=== PATIENT | male | born 1960 | race American Indian/Alaskan Native ===

== ENCOUNTER 2021-08-17 20:03 | Inpatient (IN) | payer SELFPAY ==
--- NOTE | 2021-08-17 22:08 | XRay Report ---
CHEST 1 VIEW 08/17/2021 9:00 PM INDICATION / CLINICAL INFORMATION: GI Bleed. COMPARISON: None available. FINDINGS: SUPPORT DEVICES: None. HEART / MEDIASTINUM: No significant abnormality. LUNGS / PLEURA: Increased airspace opacity within the right lower lobe. No pneumothorax. ADDITIONAL FINDINGS: No significant additional findings. IMPRESSION: 1. Increased airspace opacity in the right lower lobe which may represent [facility] process [facility]. Signer Name: Matty Toure DO Signed: 08/17/2021 10:04 PM Workstation Name: [id number]
[2021-08-17 22:58] LABS: Basophils % (Auto) 0.1 % (0.0-1.8); Hematocrit 44.8 % (35.5-45.6); Hemoglobin 14.3 gm/dl (11.8-15.2); Lymphocytes # (Auto) 0.7 K/mm3 (1.2-5.4); Lymphocytes % (Auto) 7.8 % (13.4-35.0); Mean Corpuscular HGB Conc 32 % (32-34); Mean Corpuscular Volume 71 fl (84-94); Monocytes # (Auto) 0.8 K/mm3 (0.0-0.8); Monocytes % (Auto) 9.6 % (0.0-7.3); Platelet Count 204 K/mm3 (140-440); Red Blood Count 6.33 M/mm3 (3.65-5.03); Red Cell Distribution Width 15.5 % (13.2-15.2)
[2021-08-17] MEDS ORDERED: PANTOPRAZOLE 40 MG INJ IV ONE (23:00)
[2021-08-17] MEDS ORDERED: ONDANSETRON 4 MG/2 ML INJ IV ONE (23:00)
[2021-08-17 23:04] LABS: INR 0.97 (0.87-1.13)
[2021-08-17] MEDS ORDERED: SODIUM CHLORIDE 0.9% 1000 ML 1,000 ML IV ONE (23:15)
[2021-08-17 23:17] LABS: Calcium 9.8 mg/dL (8.4-10.2)
--- NOTE | 2021-08-18 00:45 | Cat Scan Report ---
CT ABDOMEN AND PELVIS WITHOUT CONTRAST INDICATION / CLINICAL INFORMATION: pain. TECHNIQUE: Axial CT images were obtained through the abdomen and pelvis without IV contrast. All CT scans at this location are performed using CT dose reduction for ALARA by means of automated exposure control. COMPARISON: None available. FINDINGS: LOWER CHEST: Patchy infiltrate with nodular component at the right mid and lower zone. LIVER: 1.8 cm cyst at the hepatic dome anteriorly. Smaller cysts at the lateral segment of the left h epatic lobe. GALLBLADDER: No significant abnormality. BILE DUCTS: No significant abnormality. PANCREAS: No significant abnormality. SPLEEN: No significant abnormality. ADRENALS: No significant abnormality. RIGHT KIDNEY / URETER: Mild distention of the collecting system and ureter. LEFT KIDNEY / URETER: Mild distention of the collecting system and ureter. STOMACH / SMALL BOWEL: Moderate distention of the stomach with fluid. Small/moderate hiatal hernia is fluid-filled. COLON: No significant abnormality. APPENDIX: No significant abnormality. PERITONEUM: No free fluid. No free air. No fluid collection. LYMPH NODES: No significant adenopathy. VASCULAR STRUCTURES: No significant abnormality. URINARY BLADDER: Prominently distended with fluid. No wall thickening. REPRODUCTIVE ORGANS: Mild prostate enlargement. ADDITIONAL FINDINGS: None. SKELETAL SYSTEM: No significant abnormality. IMPRESSION: 1. Right-sided pneumonia. 2. Prominent bladder distention with resultant distention of the renal collecting systems and ureters . 3. Gastric distention with associated fluid filled hiatal hernia. Signer Name: Macho Gomez MD Signed: 08/18/2021 12:40 AM Workstation Name: [id number]
[2021-08-18] MEDS ORDERED: cefTRIAXone/NS 1 GM/50 ML 1 GM/50 ML BAG IV ONE (00:46)
--- NOTE | 2021-08-18 03:28 | Emergency Department Report ---
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 on asprin and plavix , no diarrhea no melena , HR noted in 120-130 -: Gradual, hour(s) Associated Symptoms: denies: denies other symptoms, confusion, chest pain, cough, diaphoresis, fever/chills, headaches, loss of appetite - Related Data Allergies Allergy/AdvReac Type Severity Reaction Status Date / Time No Known Allergies Allergy Verified 08/17/21 22:29 ED Review of Systems ROS: Stated complaint: VOMITING BLOOD Other details as noted in HPI Comment: Unobtainable due to pts medical conditions ED Past Medical Hx - Past Medical History Hx Hypertension: Yes Hx CVA: Yes ED Physical Exam - General Limitations: No Limitations General appearance: other (non verbal ) - Head Head exam: Present: atraumatic, normocephalic - Eye Eye exam: Present: normal appearance - ENT ENT exam: Present: mucous membranes moist, other (dried blood ) - Neck Neck exam: Present: normal inspection - Respiratory Respiratory exam: Present: normal lung sounds bilaterally. Absent: respiratory distress - Cardiovascular Cardiovascular Exam: Present: regular rate, normal rhythm. Absent: systolic mu rmur, diastolic murmur, rubs, gallop - GI/Abdominal GI/Abdominal exam: Present: soft, normal bowel sounds - Rectal Rectal exam: Present: deferred, heme (+) stool - Extremities Exam Extremities exam: Present: normal inspection - Back Exam Back exam: Present: normal inspection - Neurological Exam Neurological exam: Present: oriented X3 - Skin Skin exam: Present: warm, dry, intact, normal color. Absent: rash ED Course Vital Signs 08/17/21 21:35 Temperature 97.8 F Pulse Rate 130 H Respiratory 16 Rate Blood Pressure 130/90 [Right] O2 Sat by Pulse 96 Oximetry ED Medical Decision Making - Lab Data Result diagrams: 08/17/21 22:40 08/17/21 22:40 - Radiology Data Radiology results: report reviewed, image reviewed - Medical Decision Making work up shwoed stable H.H , heme positive stools, tachycardia noted , x ray shwoed pneumonia, CT negative , started on fluids and PPI Critical care attestation.: If time is entered above; I have spent that time in minutes in the direct care of this critically ill patient, excluding procedure time. ED Disposition Clinical Impression: GI bleed, Hematemesis, Pneumonia Disposition: ADMITTED INPATIENT Is pt being admited?: Yes Does the pt Need Aspirin: No Condition: Stable Instructions: Bacterial Pneumonia (ED) Referrals: PRIMARY CARE, [Primary Care Provider] - 3-5 Days
[2021-08-18] MEDS ORDERED: ONDANSETRON 4 MG/2 ML INJ IV PRN (05:25)
[2021-08-18] MEDS ORDERED: MORPHINE 4 MG/1 ML INJ IV PRN (05:25)
[2021-08-18] MEDS ORDERED: MORPHINE 2 MG/1 ML INJ IV PRN (05:25)
[2021-08-18] MEDS ORDERED: ALBUTEROL 2.5 MG/3 ML NEBU IH PRN (05:25)
[2021-08-18] MEDS ORDERED: ACETAMINOPHEN 325 MG TAB PO PRN (05:25)
--- NOTE | 2021-08-18 05:33 | History and Physical Report ---
History of Present Illness Date of examination: 08/18/21 Date of admission: 08/18/21 Chief complaint: Vomiting blood History of present illness: 60 years old male with history of hypertension and CVA with left side weakness and non verbal was brought to the emergency room because of vomiting blood. Patient is on asprin and plavix. Patient denied no diarrhea no melena , HR noted in 120-130 . Patient denied any shortness of breath or any other complain. In the emergency room patient is found to have hemoglobin of 14.3 and hematocrit 44.8, patient BUN is 35 creatinine is 3.0, patient Hemoccult is positive.'s were going to admit the patient reconsult GI for evaluation we also put the patient on Protonix drip. Past History Past Medical History: hypertension, stroke Past Surgical History: No surgical history Social history: no significant social history Family history: hypertension Medications and Allergies Allergies Allergy/AdvReac Type Severity Reaction Status Date / Time No Known Allergies Allergy Verified 08/17/21 22:29 Review of Systems All systems: negative Gastrointestinal: nausea, vomiting, hematemesis, other (GI bleeding) Exam - Constitutional Vitals: Temp Pulse Resp BP Pulse Ox 97.8 F 130 H 16 130/90 96 08/17/21 21:35 08/17/21 21:35 08/17/21 21:35 08/17/21 21:35 08/17/21 21:35 General appearance: Present: no acute distress, well-nourished - EENT Eyes: Present: PERRL ENT: hearing intact, clear oral mucosa - Neck Neck: Present: supple, normal ROM - Respiratory Respiratory effort: normal Respiratory: bilateral: CTA - Cardiovascular Heart Sounds: Present: S1 & S2. Absent: rub, click - Extremities Extremities: pulses symmetrical, No edema Peripheral Pulses: within normal limits - Abdominal General gastrointestinal: Present: soft, non-tender, non-distended, normal bowel sounds Male genitourinary: Present: normal - Integumentary Integumentary: Present: clear, warm, dry - Musculoskeletal Musculoskeletal: gait normal, strength equal bilaterally - Psychiatric Psychiatric: appropriate mood/affect, intact judgment & insight - Neurologic Neurologic: CNII-XII intact, moves all extremities Results - Labs CBC & Chem 7: 08/17/21 22:40 08/17/21 22:40 Labs: Laboratory Last Values WBC 8.6 K/mm3 (4.5-11.0) 08/17/21 22:40 RBC 6.33 M/mm3 (3.65-5.03) H 08/17/21 22:40 Hgb 14.3 gm/dl (11.8-15.2) 08/17/21 22:40 Hct 44.8 % (35.5-45.6) 08/17/21 22:40 MCV 71 fl (84-94) L 08/17/21 22:40 MCH 23 pg (28-32) L 08/17/21 22:40 MCHC 32 % (32-34) 08/17/21 22:40 RDW 15.5 % (13.2-15.2) H 08/17/21 22:40 Plt Count 204 K/mm3 (140-440) 08/17/21 22:40 Lymph % (Auto) 7.8 % (13.4-35.0) L 08/17/21 22:40 [place] % (Auto) 9.6 % (0.0-7.3) H 08/17/21 22:40 Eos % (Auto) 0.0 % (0.0-4.3) 08/17/21 22:40 Baso % (Auto) 0.1 % (0.0-1.8) 08/17/21 22:40 Lymph # (Auto) 0.7 K/mm3 (1.2-5.4) L 08/17/21 22:40 [place] # (Auto) 0.8 K/mm3 (0.0-0.8) 08/17/21 22:40 Eos # (Auto) 0.0 K/mm3 (0.0-0.4) 08/17/21 22:40 Baso # (Auto) 0.0 K/mm3 (0.0-0.1) 08/17/21 22:40 Seg Neutrophils % 82.5 % (40.0-70.0) H 08/17/21 22:40 Seg Neutrophils # 7.1 K/mm3 (1.8-7.7) 08/17/21 22:40 PT 13.9 Sec. (12.2-14.9) 08/17/21 22:40 INR 0.97 (0.87-1.13) 08/17/21 22:40 Sodium 140 mmol/L (137-145) 08/17/21 22:40 Potassium 4.8 mmol/L (3.6-5.0) 08/17/21 22:40 Chloride 101.7 mmol/L (98-107) 08/17/21 22:40 Carbon Dioxide 22 mmol/L (22-30) 08/17/21 22:40 Anion Gap 21 mmol/L 08/17/21 22:40 BUN 35 mg/dL (9-20) H 08/17/21 22:40 Creatinine 3.0 mg/dL (0.8-1.3) H D 08/17/21 22:40 Estimated GFR 26 ml/min 08/17/21 22:40 BUN/Creatinine Ratio 12 % 08/17/21 22:40 Glucose 146 mg/dL (75-100) H 08/17/21 22:40 Calcium 9.8 mg/dL (8.4-10.2) 08/17/21 22:40 Total Bilirubin 0.60 mg/dL (0.1-1.2) 08/17/21 22:40 AST 21 units/L (5-40) 08/17/21 22:40 ALT 13 units/L (7-56) 08/17/21 22:40 Alkaline Phosphatase 86 units/L (35-129) 08/17/21 22:40 Total Protein 7.2 g/dL (6.3-8.2) 08/17/21 22:40 Albumin 4.0 g/dL (3.9-5) 08/17/21 22:40 Albumin/Globulin Ratio 1.3 % 08/17/21 22:40 Lipase 14 units/L (13-60) 08/17/21 22:40 Blood Type B POSITIVE 08/17/21 22:45 Antibody Screen Negative 08/17/21 22:45 Microbiology: Microbiology 08/18/21 01:04 Peripheral/Venous Blood Culture - Preliminary Culture in Progress 08/18/21 01:36 Peripheral/Venous Blood Culture - Preliminary Culture in Progress - Imaging and Cardiology CT scan - chest: report reviewed Assessment and Plan VTE prophylaxis?: Mechanical Plan of care discussed with patient/family: Yes - Patient Problems (1) Hematemesis Current Visit: Yes Status: Acute Plan to address problem: Admit the patient to the medical telemetry. NPO. D5 half-normal saline at the rate of 100 cc/h. Protonix drip 8 mg/h. We will do the serial H&H. Will consult GI for evaluation. Recheck CBC in the morning (2) GI bleed Current Visit: Yes Status: Acute Plan to address problem: NPO. D5 half-normal saline at the rate of 100 cc/h. Protonix drip 8 mg/h. We will do the serial H&H. Will consult GI for evaluation. Recheck CBC in the m orning (3) Hypertension Current Visit: Yes Status: Acute Plan to address problem: Hydralazine 10 mg IV every 6 hours as needed. We will continue the home medication (4) CVA (cerebral vascular accident) Current Visit: Yes Status: Acute Plan to address problem: Stable. We will continue the home medication outpatient follow-up with neurology (5) Pneumonia Current Visit: Yes Status: Acute Plan to address problem: Oxygen per nasal cannula 3 L/min. DuoNeb by nebulizer every 4 hours as needed. Rocephin 2 g IV daily and Zithromax 500 mg p.o. daily. We will do the blood culture sputum culture. Recheck CBC in the morning (6) ROYA (acute kidney injury) Current Visit: Yes Status: Acute Plan to address problem: Avoid nephrotoxic drug. Renally dose medication. D5 half-normal saline at the rate of 100 cc/h. Consult nephrology evaluation. Recheck BMP in the (7) DVT prophylaxis Current Visit: Yes Status: Acute Plan to address problem: SCD for DVT prophylaxis because of GI bleeding. Protonix drip for GI prophylax is. Patient is a full code
[2021-08-18] MEDS ORDERED: IPRATROPIUM/ALBUTEROL SULFATE 3 ML AMPUL.NEB IH SCH (08:00)
--- NOTE | 2021-08-18 08:12 | Progress Note ---
Assessment and Plan Assessment and plan: 60 years old male with history of hypertension and CVA with left side weakness and non verbal was brought to the emergency room because of vomiting blood. Patient is on asprin and plavix. Patient denied no diarrhea no melena , HR noted in 120-130 . Patient denied any shortness of breath or any other complain. In the emergency room patient is found to have hemoglobin of 14.3 and hematocrit 44.8, patient BUN is 35 creatinine is 3.0, patient Hemoccult is positive.'s were going to admit the patient ,consult GI for evaluation we also put the patient on Protonix drip. We also consult nephrology for evaluation. Recheck BMP in the morning - Patient Problems (1) Hematemesis Current Visit: Yes Status: Acute Plan to address problem: Admit the patient to the medical telemetry. NPO. D5 half-normal saline at the rate of 100 cc/h. Protonix drip 8 mg/h. We will do the serial H&H. Will co nsult GI for evaluation. Recheck CBC in the morning (2) GI bleed Current Visit: Yes Status: Acute Plan to address problem: NPO. D5 half-normal saline at the rate of 100 cc/h. Protonix drip 8 mg/h. We will do the serial H&H. Will consult GI for evaluation. Recheck CBC in the morning (3) Hypertension Current Visit: Yes Status: Acute Plan to address problem: Hydralazine 10 mg IV every 6 hours as needed. We will continue the home medication (4) CVA (cerebral vascular accident) Current Visit: Yes Status: Acute Plan to address problem: Stable. We will continue the home medication outpatient follow-up with neurology (5) Pneumonia Current Visit: Yes Status: Acute Plan to address problem: Oxygen per nasal cannula 3 L/min. DuoNeb by nebulizer every 4 hours as needed. Rocephin 2 g IV daily and Zithromax 500 mg p.o. daily. We will do the blood culture sputum culture. Recheck CBC in the morning (6) ROYA (acute kidney injury) Current Visit: Yes Status: Acute Plan to address problem: Avoid nephrotoxic drug. Renally dose medication. D5 half-normal saline at the rate of 100 cc/h. Consult nephrology evaluation. Recheck BMP in the (7) DVT prophylaxis Current Visit: Yes Status: Acute Plan to address problem: SCD for DVT prophylaxis because of GI bleeding. Protonix drip for GI prophylaxis. Patient is a full code History Interval history: Patient is seen and examined. Lab and data reviewed. Patient feels little better. No more vomiting blood. Hemoglobin is 14.3 and hematocrit 44.8. Patient is on Protonix drip and waiting for GI evaluation Hospitalist Physical - Constitutional Vitals: Temp Pulse Resp BP Pulse Ox 97.8 F 124 H 41 H 146/102 96 08/17/21 21:35 08/18/21 07:31 08/18/21 07:31 08/18/21 07:31 08/18/21 06:31 General appearance: Present: no acute distress, well-nourished - EENT Eyes: Present: PERRL, EOM intact ENT: hearing intact, clear oral mucosa, dentition normal - Neck Neck: Present: supple, normal ROM - Respiratory Respiratory effort: normal Respiratory: bilateral: CTA - Cardiovascular Rhythm: regular Heart Sounds: Present: S1 & S2 - Extremities Extremities: no ischemia, No edema, normal color Peripheral Pulses: within normal limits - Abdominal General gastrointestinal: soft, non-tender, non-distended, normal bowel sounds - Integumentary Integumentary: Present: clear, warm, dry - Psychiatric Psychiatric: appropriate mood/affect, intact judgment & insight - Neurologic Neurologic: CNII-XII intact, moves all extremities, gait normal - Allied Health Allied health notes reviewed: case management Results - Labs CBC & Chem 7: 08/17/21 22:40 08/17/21 22:40 Labs: Laboratory Last Values WBC 8.6 K/mm3 (4.5-11.0) 08/17/21 22:40 RBC 6.33 M/mm3 (3.65-5.03) H 08/17/21 22:40 Hgb 14.3 gm/dl (11.8-15.2) 08/17/21 22:40 Hct 44.8 % (35.5-45.6) 08/17/21 22:40 MCV 71 fl (84-94) L 08/17/21 22:40 MCH 23 pg (28-32) L 08/17/21 22:40 MCHC 32 % (32-34) 08/17/21 22:40 RDW 15.5 % (13.2-15.2) H 08/17/21 22:40 Plt Count 204 K/mm3 (140-440) 08/17/21 22:40 Lymph % (Auto) 7.8 % (13.4-35.0) L 08/17/21 22:40 [place] % (Auto) 9.6 % (0.0-7.3) H 08/17/21 22:40 Eos % (Auto) 0.0 % (0.0-4.3) 08/17/21 22:40 Baso % (Auto) 0.1 % (0.0-1.8) 08/17/21 22:40 Lymph # (Auto) 0.7 K/mm3 (1.2-5.4) L 08/17/21 22:40 [place] # (Auto) 0.8 K/mm3 (0.0-0.8) 08/17/21 22:40 Eos # (Auto) 0.0 K/mm3 (0.0-0.4) 08/17/21 22:40 Baso # (Auto) 0.0 K/mm3 (0.0-0.1) 08/17/21 22:40 Seg Neutrophils % 82.5 % (40.0-70.0) H 08/17/21 22:40 Seg Neutrophils # 7.1 K/mm3 (1.8-7.7) 08/17/21 22:40 PT 13.9 Sec. (12.2-14.9) 08/17/21 22:40 INR 0.97 (0.87-1.13) 08/17/21 22:40 Sodium 140 mmol/L (137-145) 08/17/21 22:40 Potassium 4.8 mmol/L (3.6-5.0) 08/17/21 22:40 Chloride 101.7 mmol/L (98-107) 08/17/21 22:40 Carbon Dioxide 22 mmol/L (22-30) 08/17/21 22:40 Anion Gap 21 mmol/L 08/17/21 22:40 BUN 35 mg/dL (9-20) H 08/17/21 22:40 Creatinine 3.0 mg/dL (0.8-1.3) H D 08/17/21 22:40 Estimated GFR 26 ml/min 08/17/21 22:40 BUN/Creatinine Ratio 12 % 08/17/21 22:40 Glucose 146 mg/dL (75-100) H 08/17/21 22:40 Calcium 9.8 mg/dL (8.4-10.2) 08/17/21 22:40 Total Bilirubin 0.60 mg/dL (0.1-1.2) 08/17/21 22:40 AST 21 units/L (5-40) 08/17/21 22:40 ALT 13 units/L (7-56) 08/17/21 22:40 Alkaline Phosphatase 86 units/L (35-129) 08/17/21 22:40 Total Protein 7.2 g/dL (6.3-8.2) 08/17/21 22:40 Albumin 4.0 g/dL (3.9-5) 08/17/21 22:40 Albumin/Globulin Ratio 1.3 % 08/17/21 22:40 Lipase 14 units/L (13-60) 08/17/21 22:40 Blood Type B POSITIVE 08/17/21 22:45 Antibody Screen Negative 08/17/21 22:45 Microbiology: Microbiology 08/18/21 01:04 Peripheral/Venous Blood Culture - Preliminary Culture in Progress 08/18/21 01:36 Peripheral/Venous Blood Culture - Preliminary Culture in Progress - Imaging and Cardiology Chest x-ray: report reviewed CT scan - abdomen: report reviewed Active Medications - Current Medications Current Medications: Generic Name Dose Route Start Last Admin Trade Name Freq PRN Reason Stop Dose Admin Acetaminophen 650 mg 08/18/21 05:25 Acetaminophen 325 Mg Tab PO Q4H PRN Pain MILD(1-3)/Fever >100.5/SIMMS Albuterol 2.5 mg 08/18/21 05:25 Albuterol 2.5 Mg/3 Ml Nebu IH Q3HRT PRN Shortness Of Breath Albuterol/Ipratropium 1 ampul 08/18/21 08:00 Ipratropium/Albuterol Sulfate 3 Ml Ampul.Neb IH Q6HRT JUANI Azithromycin 500 mg 08/18/21 10:00 Azithromycin 250 Mg Tab PO QDAY JUANI Protocol Dextrose/Sodium Chloride 1,000 mls @ 100 mls/hr 08/18/21 06:00 D5/0.45ns IV DIRECT JUANI Ceftriaxone Sodium 2 gm in 100 mls @ 200 mls/hr 08/18/21 10:00 Rocephin/Ns 2 Gm/100 Ml IV Q24HR JUANI Protocol Pantoprazole Sodium 80 mg/ 100 mls @ 10 mls/hr 08/18/21 06:00 Sodium Chloride IV DIRECT JUANI 8 MG/HR Morphine Sulfate 2 mg 08/18/21 05:25 Morphine 2 Mg/1 Ml Inj IV Q4H PRN Pain, Moderate (4-6) Morphine Sulfate 4 mg 08/18/21 05:25 Morphine 4 Mg/1 Ml Inj IV Q4H PRN Pain , Severe (7-10) Ondansetron HCl 4 mg 08/18/21 05:25 Ondansetron 4 Mg/2 Ml Inj IV Q8H PRN Nausea And Vomiting Sodium Chloride 10 ml 08/18/21 10:00 Sodium Chloride 0.9% 10 Ml Flush Syringe IV BID JUANI Sodium Chloride 10 ml 08/18/21 05:25 Sodium Chloride 0.9% 10 Ml Flush Syringe IV PRN PRN LINE FLUSH Nutrition/Malnutrition Assess - Malnutrition Assessment Minimum of two criteria: No physical signs of malnutrition - Attestation Statement I have reviewed and agreed w/ Malnutrition eval & tx plan: Yes
[2021-08-18 08:37] LABS: Hematocrit 41.8 % (35.5-45.6); Hemoglobin 13.4 gm/dl (11.8-15.2); Lymphocytes # (Auto) 1.4 K/mm3 (1.2-5.4); Lymphocytes % (Auto) 13.3 % (13.4-35.0); Mean Corpuscular HGB Conc 32 % (32-34); Mean Corpuscular Volume 71 fl (84-94); Monocytes # (Auto) 1.1 K/mm3 (0.0-0.8); Monocytes % (Auto) 10.4 % (0.0-7.3); Platelet Count 199 K/mm3 (140-440); Red Blood Count 5.93 M/mm3 (3.65-5.03); Red Cell Distribution Width 15.3 % (13.2-15.2)
[2021-08-18 08:58] LABS: Calcium 9.3 mg/dL (8.4-10.2)
[2021-08-18] MEDS: D5W/0.45% NACL 1,000 ML IV SCH ×2 (09:15→22:21)
[2021-08-18] MEDS: PANTOPRAZOLE 80 MG in SODIUM CHLORIDE 0.9% 100 ML IV SCH ×2 (09:15→22:21)
[2021-08-18] MEDS ORDERED: AZITHROMYCIN 250 MG TAB PO SCH (10:00)
[2021-08-18] MEDS: cefTRIAXone/NS 2 GM/100 ML 2 GM/100 ML BAG IV SCH (10:47)
--- NOTE | 2021-08-18 18:11 | Gastroenterology Consultation ---
History of Present Illness - Reason for Consult Consult date: 08/18/21 GI bleed Requesting physician: BAYRON SHETH - History of Present Illness This is a 60-year-old male with history of hypertension CVA with left-sided weakness and nonverbal admitted to the hospital after vomiting episodes with blood. Patient is able to give limited history with nodding. Patient is on aspirin and Plavix. Denies any blood in the stool or melena. In the ER found to have hemoglobin at 14.3. Hemodynamically stable. Per nursing patient has not had any additional episodes of hematemesis. Unfortunately patient is not able to give history as far as prior history of GI bleed or prior EGD colonoscopy. CT abdomen pelvis shows right-sided pneumonia moderate distention of the stomach with fluid small hiatal hernia fluid-filled. Normal liver enzymes. Medication list reviewed. Past History Past Medical History: hypertension, stroke Past Surgical History: No surgical history Social history: no significant social history Family history: hypertension Medications and Allergies Allergies Allergy/AdvReac Type Severity Reaction Status Date / Time No Known Allergies Allergy Verified 08/17/21 22:29 Active Meds: Active Medications Acetaminophen (Acetaminophen 325 Mg Tab) 650 mg PO Q4H PRN PRN Reason: Pain MILD(1-3)/Fever >100.5/SIMMS Albuterol (Albuterol 2.5 Mg/3 Ml Nebu) 2.5 mg IH Q3HRT PRN PRN Reason: Shortness Of Breath Albuterol/Ipratropium (Ipratropium/Albuterol Sulfate 3 Ml Ampul.Neb) 1 ampul IH Q6HRT JUANI Azithromycin (Azithromycin 250 Mg Tab) 500 mg PO QDAY JUANI; Protocol Last Admin: 08/18/21 10:47 Dose: Not Given Dextrose/Sodium Chloride (D5/0.45ns) 1,000 mls @ 100 mls/hr IV DIRECT JUANI Last Admin: 08/18/21 09:15 Dose: 100 mls/hr Ceftriaxone Sodium (Rocephin/Ns 2 Gm/100 Ml) 2 gm in 100 mls @ 200 mls/hr IV Q24HR JUANI; Protocol Last Admin: 08/18/21 10:47 Dose: 200 mls/hr Pantoprazole Sodium 80 mg/ (Sodium Chloride) 100 mls @ 10 mls/hr IV DIRECT JUANI Last Admin: 08/18/21 09:15 Dose: 8 mg/hr, 10 mls/hr Morphine Sulfate (Morphine 2 Mg/1 Ml Inj) 2 mg IV Q4H PRN PRN Reason: Pain, Moderate (4-6) Morphine Sulfate (Morphine 4 Mg/1 Ml Inj) 4 mg IV Q4H PRN PRN Reason: Pain , Severe (7-10) Ondansetron HCl (Ondansetron 4 Mg/2 Ml Inj) 4 mg IV Q8H PRN PRN Reason: Nausea And Vomiting Sodium Chloride (Sodium Chloride 0.9% 10 Ml Flush Syringe) 10 ml IV BID JUANI Last Admin: 08/18/21 10:49 Dose: 10 ml Sodium Chloride (Sodium Chloride 0.9% 10 Ml Flush Syringe) 10 ml IV PRN PRN PRN Reason: LINE FLUSH Review of Systems - Review of Systems ROS unobtainable: due to mental status Exam - Constitutional Vital Signs: Temp Pulse Resp BP Pulse Ox 97.6 F 106 H 38 H 152/105 96 08/18/21 09:29 08/18/21 12:01 08/18/21 12:01 08/18/21 12:01 08/18/21 06:31 General appearance: no acute distress - EENT Eyes: EOM intact - Neck Neck: supple - Respiratory Respiratory effort: normal - Cardiovascular Rhythm: regular Heart Sounds: Present: S1 & S2 - Gastrointestinal General gastrointestinal: Present: soft, non-tender, non-distended - Integumentary Integumentary: Present: clear, warm - Neurologic Neurological: left side weakness - Psychiatric Psychiatric: appropriate mood/affect - Labs CBC & Chem 7: 08/18/21 08:27 08/18/21 08:27 Lab Results: Laboratory Results - last 24 hr 08/17/21 08/17/21 08/17/21 22:40 22:40 22:40 WBC 8.6 RBC 6.33 H Hgb 14.3 Hct 44.8 MCV 71 L MCH 23 L MCHC 32 RDW 15.5 H Plt Count 204 Lymph % (Auto) 7.8 L [place] % (Auto) 9.6 H Eos % (Auto) 0.0 Baso % (Auto) 0.1 Lymph # (Auto) 0.7 L [place] # (Auto) 0.8 Eos # (Auto) 0.0 Baso # (Auto) 0.0 Seg Neutrophils % 82.5 H Seg Neutrophils # 7.1 PT 13.9 INR 0.97 Sodium 140 Potassium 4.8 Chloride 101.7 Carbon Dioxide 22 Anion Gap 21 BUN 35 H Creatinine 3.0 H D Estimated GFR 26 BUN/Creatinine Ratio 12 Glucose 146 H Calcium 9.8 Total Bilirubin 0.60 AST 21 ALT 13 Alkaline Phosphatase 86 Total Protein 7.2 Albumin 4.0 Albumin/Globulin Ratio 1.3 Lipase 14 Blood Type Antibody Screen 08/17/21 08/18/21 08/18/21 22:45 08:27 08:27 WBC 10.3 RBC 5.93 H Hgb 13.4 Hct 41.8 MCV 71 L MCH 23 L MCHC 32 RDW 15.3 H Plt Count 199 Lymph % (Auto) 13.3 L [place] % (Auto) 10.4 H Eos % (Auto) 0.0 Baso % (Auto) 0.0 Lymph # (Auto) 1.4 [place] # (Auto) 1.1 H Eos # (Auto) 0.0 Baso # (Auto) 0.0 Seg Neutrophils % 76.3 H Seg Neutrophils # 7.9 H PT INR Sodium 142 Potassium 4.8 Chloride 106.0 Carbon Dioxide 20 L Anion Gap 21 BUN 45 H Creatinine 4.4 H Estimated GFR 17 BUN/Creatinine Ratio 10 Glucose 121 H Calcium 9.3 Total Bilirubin AST ALT Alkaline Phosphatase Total Protein Albumin Albumin/Globulin Ratio Lipase Blood Type B POSITIVE Antibody Screen Negative - Imaging CT Scan: report reviewed Assessment and Plan # Hematemesis - report of vomiting blood prior to bright brought to the ED. - no episode of bleeding since admission. - Hgb stable at 13-14. - CT abdomen pelvis shows right-sided pneumonia moderate distention of the stomach with fluid small hiatal hernia fluid-filled. - h/o CVA and vascular dementia. Rec - cont to monitor H/H and transfuse as needed. - monitor for signs of bleeding - cont with PPI IV. - given no current signs of active bleeding, will hold off endoscopy at this time. - will follow. - Patient Problems (1) GI bleed Current Visit: Yes Status: Acute
[2021-08-19 05:08] LABS: Basophils % (Auto) 0.1 % (0.0-1.8); Eosinophils % (Auto) 0.6 % (0.0-4.3); Hematocrit 39.1 % (35.5-45.6); Hemoglobin 12.7 gm/dl (11.8-15.2); Lymphocytes # (Auto) 1.1 K/mm3 (1.2-5.4); Lymphocytes % (Auto) 13.9 % (13.4-35.0); Mean Corpuscular HGB Conc 32 % (32-34); Mean Corpuscular Volume 71 fl (84-94); Monocytes # (Auto) 0.7 K/mm3 (0.0-0.8); Monocytes % (Auto) 9.3 % (0.0-7.3); Platelet Count 158 K/mm3 (140-440); Red Blood Count 5.53 M/mm3 (3.65-5.03); Red Cell Distribution Width 15.9 % (13.2-15.2)
[2021-08-19 05:40] LABS: Calcium 8.8 mg/dL (8.4-10.2)
[2021-08-19] MEDS: IPRATROPIUM/ALBUTEROL SULFATE 3 ML AMPUL.NEB IH SCH ×3 (08:48→20:52)
--- NOTE | 2021-08-19 09:02 | Electrocardiograph Report ---
[facility] Test Date: 2021-08-19 Test Time: 07:04:48 Pat Name: SUDHAKAR DAVIS Department: Room: A471 1 Gender: M Arnp: MELODY : 1960 Requested By: ARTIE DAO Order Number: [id number] Reading MD: Paul Siddiqui Measurements Intervals [place] Rate: 126 P: 64 MO: 153 QRS: 1 QRSD: 75 T: 107 QT: 313 QTc: 454 Interpretive Statements Sinus tachycardia Nonspecific T abnormalities, lateral leads No previous ECG available for comparison Electronically Signed On 08-19-2021 9:02:07 EDT by Paul Siddiqui
--- NOTE | 2021-08-19 09:13 | Gastroenterology Progress Note ---
Assessment and Plan # Hematemesis - report of vomiting blood prior to bright brought to the ED. - no episode of bleeding since admission. - Hgb stable at 13-14. - CT abdomen pelvis shows right-sided pneumonia moderate distention of the stomach with fluid small hiatal hernia fluid-filled. - h/o CVA and vascular dementia. -No bleeding episodes overnight. Rec - cont to monitor H/H and transfuse as needed. - monitor for signs of bleeding - cont with PPI IV. - given no current signs of active bleeding, will hold off endoscopy at this time. -KUB done this morning and read pending. Previous CT on admission showed distention of stomach. -Discussed with IMS team. - will follow. - Patient Problems (1) GI bleed Current Visit: Yes Status: Acute Subjective Date of service: 08/19/21 Interval history: Patient is nonverbal. But is able to communicate by nodding. Per nursing no signs of bleeding overnight. No nausea vomiting or abdominal pain. No bowel movement overnight. Objective - Constitutional Vitals: Temp Pulse Resp BP Pulse Ox 97.9 F 87 19 116/65 95 08/19/21 03:57 08/19/21 08:56 08/19/21 08:56 08/19/21 03:57 08/19/21 08:59 General appearance: no acute distress - EENT Eyes: EOM intact - Neck Neck: supple - Respiratory Respiratory effort: normal - Cardiovascular Rhythm: regular Heart Sounds: Present: S1 & S2 - Gastrointestinal General gastrointestinal: Present: soft, non-tender, non-distended - Neurologic Neurological: other (Nonverbal) - Labs CBC & Chem 7: 08/19/21 04:40 08/19/21 04:40 Labs: Laboratory Results - last 24 hr 08/19/21 08/19/21 04:40 04:40 WBC 8.1 RBC 5.53 H Hgb 12.7 Hct 39.1 MCV 71 L MCH 23 L MCHC 32 RDW 15.9 H Plt Count 158 Lymph % (Auto) 13.9 [place] % (Auto) 9.3 H Eos % (Auto) 0.6 Baso % (Auto) 0.1 Lymph # (Auto) 1.1 L [place] # (Auto) 0.7 Eos # (Auto) 0.0 Baso # (Auto) 0.0 Seg Neutrophils % 76.1 H Seg Neutrophils # 6.1 Sodium 138 Potassium 4.4 Chloride 104.6 Carbon Dioxide 18 L Anion Gap 20 BUN 56 H Creatinine 6.8 H D Estimated GFR 10 BUN/Creatinine Ratio 8 Glucose 120 H Calcium 8.8 - Imaging CT scan: report reviewed
[2021-08-19] MEDS: AZITHROMYCIN 250 MG TAB PO SCH (09:30)
[2021-08-19] MEDS: PANTOPRAZOLE 40 MG INJ IV SCH ×2 (09:30→22:11)
[2021-08-19] MEDS: cefTRIAXone/NS 2 GM/100 ML 2 GM/100 ML BAG IV SCH (09:30)
--- NOTE | 2021-08-19 10:13 | Consultation ---
History of Present Illness - Reason for Consult Consult date: 08/19/21 acute renal failure Requesting physician: BAYRON SHETH - History of Present Illness This is a 60 yo AAM with history of Hypertension, CVA with left sided weakness, who presents to ER with complaints of vomiting blood. Patient is on ASA/plavix. Upon exam pt is poor historian, not able to give any detailed history. In ER patient was found to be tachycardic with HR 120-130s. Labs showed hemoglobin of 14.3 and hematocrit 44.8, patient Hemoccult is positive. labs also showed elevated BUN/Cr at 35/3mg/dl on admission, which rising further to 56/6.8mg/dl for which renal consult is requested. CT A/P showed gastric distention with associated fluid filled hiatal hernia, r sided pneumonia and prominent bladder distention with resultant distention of the renal collecting systems and ureters. Renal consult is requested for management of ROYA. Past History Past Medical History: hypertension, stroke Past Surgical History: No surgical history Social history: no significant social history Family history: hypertension Medications and Allergies Allergies Allergy/AdvReac Type Severity Reaction Status Date / Time No Known Allergies Allergy Verified 08/17/21 22:29 Active Meds: Active Medications Acetaminophen (Acetaminophen 325 Mg Tab) 650 mg PO Q4H PRN PRN Reason: Pain MILD(1-3)/Fever >100.5/SIMMS Albuterol (Albuterol 2.5 Mg/3 Ml Nebu) 2.5 mg IH Q3HRT PRN PRN Reason: Shortness Of Breath Albuterol/Ipratropium (Ipratropium/Albuterol Sulfate 3 Ml Ampul.Neb) 1 ampul IH TIDRT [facility] Last Admin: 08/19/21 08:48 Dose: 1 ampul Azithromycin (Azithromycin 250 Mg Tab) 500 mg PO QDAY [facility]; Protocol Last Admin: 08/18/21 10:47 Dose: Not Given Ceftriaxone Sodium (Rocephin/Ns 2 Gm/100 Ml) 2 gm in 100 mls @ 200 mls/hr IV Q24HR [facility]; Protocol Stop: 08/22/21 10:29 Last Admin: 08/18/21 10:47 Dose: 200 mls/hr Morphine Sulfate (Morphine 2 Mg/1 Ml Inj) 2 mg IV Q4H PRN PRN Reason: Pain, Moderate (4-6) Morphine Sulfate (Morphine 4 Mg/1 Ml Inj) 4 mg IV Q4H PRN PRN Reason: Pain , Severe (7-10) Ondansetron HCl (Ondansetron 4 Mg/2 Ml Inj) 4 mg IV Q8H PRN PRN Reason: Nausea And Vomiting Pantoprazole Sodium (Pantoprazole 40 Mg Inj) 40 mg IV BID [facility] Sodium Chloride (Sodium Chloride 0.9% 10 Ml Flush Syringe) 10 ml IV BID [facility] Last Admin: 08/18/21 22:00 Dose: Not Given Sodium Chloride (Sodium Chloride 0.9% 10 Ml Flush Syringe) 10 ml IV PRN PRN PRN Reason: LINE FLUSH Review of Systems ROS unobtainable: due to mental status Exam - Vital Signs Vital signs: Vital Signs Temp Pulse Resp BP Pulse Ox 97.8 F 130 H 16 130/90 96 08/17/21 21:35 08/17/21 21:35 08/17/21 21:35 08/17/21 21:35 08/17/21 21:35 - General Appearance General appearance: well-developed, well-nourished, appears stated age EENT: ATNC, PERRL, mucous membranes moist Neck: Present: neck supple Respiratory: Clear to Ascultation Heart: regular, S1S2 Gastrointestinal: Present: normoactive bowel sounds Integumentary: no rash Neurologic: no focal deficit, alert and oriented x3, strength 5/5, CN 3-12 intact Psychiatric: mood/affect appropriate, cooperative Results - Lab Results 08/19/21 04:40 08/19/21 04:40 Most recent lab results Calcium 8.8 mg/dL (8.4-10.2) 08/19/21 04:40 Assessment and Plan - Patient Problems (1) ROYA (acute kidney injury) Current Visit: Yes Status: Acute Plan to address problem: acute renal failure likely secondary to urinary retention with early hydroureter/hydronephrosis as evidenced by CT A/P. Recommend romo placement and urology consultation. Will check UA, urine lytes, urine protein/cr ratio. Cont supportive care for ROYA, avoid further nephrotoxins, NSAIDs IV contrast. Will monitor lytes, renal parameters closely and make further recommendations. (2) Urinary retention Current Visit: Yes Status: Acute Plan to address problem: recommend romo placement, urology consultation (3) Metabolic acidosis Current Visit: Yes Status: Acute (4) Hematemesis Current Visit: Yes Status: Acute Plan to address problem: follow GI recommendations
[2021-08-19] MEDS ORDERED: AZITHROMYCIN/NS 500 MG/250 ML 500 MG/250 ML BAG IV SCH (12:00)
--- NOTE | 2021-08-19 15:09 | Progress Note ---
Assessment and Plan Assessment and plan: #Hematemesis #Upper GI bleed Reported event prior to admission. No bleeding has been documented or seen during this hospitalization. Transition to Protonix drip to IV pantoprazole 40 mg twice daily. Continue to trend H&H. Gastroenterology consulted; appreciate recs Transition to clear liquid diet. #Urinary obstruction Visualized bladder distention on CT abdomen/pelvis noncontrast Urology consulted for Banegas placement; pending recs. Nurses unable to place Banegas catheter. #ROYA #ESRD on hemodialysis -Access: Permacath right upper chest -Outpatient schedule: Unknown -HD center: Unknown -Nephrology consulted; appreciate recs. -Renally dose medications and avoid nephrotoxic drugs. Renal diet. #Presumed community-acquired pneumonia Continue Rocephin 2 g daily and p.o. azithromycin 500 mg daily. Pending sputum culture. #History of CVA with focal deficits Continue goal-directed medical therapy #Advanced care planning -Disease education conducted, care plan discussed, diagnoses discussed, prognosis discussed, and patient acknowledges understanding with care plan -Time: +30 min Disposition Plan: Continue medical management Total Time Spent with Patient (Minutes): 45 minutes History Interval history: No acute events overnight. Hospitalist Physical - Constitutional Vitals: Temp Pulse Resp BP Pulse Ox 97.9 F 91 H 18 116/65 95 08/19/21 03:57 08/19/21 14:06 08/19/21 14:06 08/19/21 03:57 08/19/21 14:51 General appearance: Present: no acute distress, well-nourished - EENT Eyes: Present: PERRL, EOM intact ENT: hearing intact, clear oral mucosa, dentition normal - Neck Neck: Present: supple, normal ROM, other (Permacath in right upper chest) - Respiratory Respiratory effort: normal Respiratory: bilateral: diminished - Cardiovascular Rhythm: regular Heart Sounds: Present: S1 & S2 - Extremities Extremities: no ischemia, pulses intact, pulses symmetrical, No edema, normal temperature, normal color Peripheral Pulses: within normal limits - Abdominal General gastrointestinal: soft, non-tender, non-distended, normal bowel sounds - Integumentary Integumentary: Present: clear, warm, dry - Psychiatric Psychiatric: appropriate mood/affect, other (Limited speech and response ) - Neurologic Neurologic: CNII-XII intact - Allied Health Allied health notes reviewed: nursing Results - Labs CBC & Chem 7: 08/19/21 04:40 08/19/21 04:40 Labs: Laboratory Last Values WBC 8.1 K/mm3 (4.5-11.0) 08/19/21 04:40 RBC 5.53 M/mm3 (3.65-5.03) H 08/19/21 04:40 Hgb 12.7 gm/dl (11.8-15.2) 08/19/21 04:40 Hct 39.1 % (35.5-45.6) 08/19/21 04:40 MCV 71 fl (84-94) L 08/19/21 04:40 MCH 23 pg (28-32) L 08/19/21 04:40 MCHC 32 % (32-34) 08/19/21 04:40 RDW 15.9 % (13.2-15.2) H 08/19/21 04:40 Plt Count 158 K/mm3 (140-440) 08/19/21 04:40 Lymph % (Auto) 13.9 % (13.4-35.0) 08/19/21 04:40 [place] % (Auto) 9.3 % (0.0-7.3) H 08/19/21 04:40 Eos % (Auto) 0.6 % (0.0-4.3) 08/19/21 04:40 Baso % (Auto) 0.1 % (0.0-1.8) 08/19/21 04:40 Lymph # (Auto) 1.1 K/mm3 (1.2-5.4) L 08/19/21 04:40 [place] # (Auto) 0.7 K/mm3 (0.0-0.8) 08/19/21 04:40 Eos # (Auto) 0.0 K/mm3 (0.0-0.4) 08/19/21 04:40 Baso # (Auto) 0.0 K/mm3 (0.0-0.1) 08/19/21 04:40 Seg Neutrophils % 76.1 % (40.0-70.0) H 08/19/21 04:40 Seg Neutrophils # 6.1 K/mm3 (1.8-7.7) 08/19/21 04:40 PT 13.9 Sec. (12.2-14.9) 08/17/21 22:40 INR 0.97 (0.87-1.13) 08/17/21 22:40 Sodium 138 mmol/L (137-145) 08/19/21 04:40 Potassium 4.4 mmol/L (3.6-5.0) 08/19/21 04:40 Chloride 104.6 mmol/L (98-107) 08/19/21 04:40 Carbon Dioxide 18 mmol/L (22-30) L 08/19/21 04:40 Anion Gap 20 mmol/L 08/19/21 04:40 BUN 56 mg/dL (9-20) H 08/19/21 04:40 Creatinine 6.8 mg/dL (0.8-1.3) H D 08/19/21 04:40 Estimated GFR 10 ml/min 08/19/21 04:40 BUN/Creatinine Ratio 8 % 08/19/21 04:40 Glucose 120 mg/dL (75-100) H 08/19/21 04:40 Calcium 8.8 mg/dL (8.4-10.2) 08/19/21 04:40 Total Bilirubin 0.60 mg/dL (0.1-1.2) 08/17/21 22:40 AST 21 units/L (5-40) 08/17/21 22:40 ALT 13 units/L (7-56) 08/17/21 22:40 Alkaline Phosphatase 86 units/L (35-129) 08/17/21 22:40 Total Protein 7.2 g/dL (6.3-8.2) 08/17/21 22:40 Albumin 4.0 g/dL (3.9-5) 08/17/21 22:40 Albumin/Globulin Ratio 1.3 % 08/17/21 22:40 Lipase 14 units/L (13-60) 08/17/21 22:40 Blood Type B POSITIVE 08/17/21 22:45 Antibody Screen Negative 08/17/21 22:45 Microbiology: Microbiology 08/18/21 01:04 Peripheral/Venous Blood Culture - Preliminary NO GROWTH AFTER 24 HOURS 08/18/21 01:36 Peripheral/Venous Blood Culture - Preliminary NO GROWTH AFTER 24 HOURS Banegas/IV: Voiding Method Condom Catheter Active Medications - Current Medications Current Medications: Generic Name Dose Route Start Last Admin Trade Name Freq PRN Reason Stop Dose Admin Acetaminophen 650 mg 08/18/21 05:25 Acetaminophen 325 Mg Tab PO Q4H PRN Pain MILD(1-3)/Fever >100.5/SIMMS Albuterol 2.5 mg 08/18/21 05:25 Albuterol 2.5 Mg/3 Ml Nebu IH Q3HRT PRN Shortness Of Breath Albuterol/Ipratropium 1 ampul 08/19/21 08:00 08/19/21 14:04 Ipratropium/Albuterol Sulfate 3 Ml Ampul.Neb IH 1 ampul TIDRT [facility] Administration Azithromycin 500 mg 08/19/21 12:00 08/19/21 09:30 Azithromycin 250 Mg Tab PO 08/23/21 10:01 500 mg QDAY JUANI Administration Protocol Ceftriaxone Sodium 2 gm in 100 mls @ 200 mls/hr 08/18/21 10:00 08/19/21 09:30 Rocephin/Ns 2 Gm/100 Ml IV 08/22/21 10:29 200 mls/hr Q24HR [facility] Administration Protocol Morphine Sulfate 2 mg 08/18/21 05:25 Morphine 2 Mg/1 Ml Inj IV Q4H PRN Pain, Moderate (4-6) Morphine Sulfate 4 mg 08/18/21 05:25 Morphine 4 Mg/1 Ml Inj IV Q4H PRN Pain , Severe (7-10) Ondansetron HCl 4 mg 08/18/21 05:25 Ondansetron 4 Mg/2 Ml Inj IV Q8H PRN Nausea And Vomiting Pantoprazole Sodium 40 mg 08/19/21 10:00 08/19/21 09:30 Pantoprazole 40 Mg Inj IV 40 mg BID [facility]UANI Administration Sodium Chloride 10 ml 08/18/21 10:00 08/19/21 10:00 Sodium Chloride 0.9% 10 Ml Flush Syringe IV 10 ml BID [facility]UANI Administration Sodium Chloride 10 ml 08/18/21 05:25 Sodium Chloride 0.9% 10 Ml Flush Syringe IV PRN PRN LINE FLUSH
--- NOTE | 2021-08-19 19:10 | XRay Report ---
Abdomen single view INDICATION: Abdominal pain IMPRESSION: Nonobstructive bowel gas pattern. Signer Name: Harjinder Lezama MD Signed: 08/19/2021 7:05 PM Workstation Name: [employer]
[2021-08-20 05:28] LABS: Hematocrit 37.4 % (35.5-45.6); Hemoglobin 12.1 gm/dl (11.8-15.2)
[2021-08-20 05:37] LABS: Calcium 9.1 mg/dL (8.4-10.2)
[2021-08-20] MEDS ORDERED: LACTATED RINGERS 1,000 ML IV ONE (08:30)
[2021-08-20] MEDS: IPRATROPIUM/ALBUTEROL SULFATE 3 ML AMPUL.NEB IH SCH (09:19)
[2021-08-20] MEDS: PANTOPRAZOLE 40 MG INJ IV SCH ×2 (09:19→21:26)
[2021-08-20] MEDS: AZITHROMYCIN 250 MG TAB PO SCH (09:20)
[2021-08-20] MEDS: cefTRIAXone/NS 2 GM/100 ML 2 GM/100 ML BAG IV SCH (09:22)
--- NOTE | 2021-08-20 11:32 | Progress Note ---
Assessment and Plan Assessment and plan: #Hematemesisruled out #Upper GI bleedruled out Reported event prior to admission. No bleeding has been documented or seen during this hospitalization. Transitioning IV pantoprazole 40 mg twice daily to p.o 40 mg daily. Continue to trend H&H. Gastroenterology consulted; appreciate recs Transition to renal diet. #Urinary obstruction Visualized bladder distention on CT abdomen/pelvis noncontrast Urology consulted for Banegas placement; pending recs. Nurses unable to place Banegas catheter. #ESRD on hemodialysis -Access: Permacath right upper chest -Outpatient schedule: Unknown -HD center: Unknown -Nephrology consulted; appreciate recs. -Renally dose medications and avoid nephrotoxic drugs. Renal diet. #Presumed community-acquired pneumonia Continue Rocephin 2 g daily and p.o. azithromycin 500 mg daily. Pending sputum culture. #History of CVA with focal deficits Continue goal-directed medical therapy #Advanced care planning -Disease education conducted, care plan discussed, diagnoses discussed, prognosis discussed, and patient acknowledges understanding with care plan -Time: +30 min #Discharge planning - Patient is pending resolution of urinary obstruction and possible hemodialysis while inpatient. - Case management has been made aware. - Discharge is tentatively 24-48 hours Disposition Plan: Continue medical management Total Time Spent with Patient (Minutes): 45 minutes History Interval history: No acute events overnight. Hospitalist Physical - Constitutional Vitals: Temp Pulse Resp BP Pulse Ox 99.0 F 110 H 18 127/90 98 08/20/21 07:35 08/20/21 09:20 08/20/21 09:20 08/20/21 07:35 08/20/21 09:22 General appearance: Present: no acute distress, well-nourished - EENT Eyes: Present: PERRL, EOM intact ENT: hearing intact, clear oral mucosa, dentition normal - Neck Neck: Present: supple, normal ROM, other (Permacath in right upper chest) - Respiratory Respiratory effort: normal Respiratory: bilateral: diminished - Cardiovascular Heart rate: 108 Rhythm: regular Heart Sounds: Present: S1 & S2 - Extremities Extremities: no ischemia, pulses intact, pulses symmetrical, No edema, normal temperature, normal color Peripheral Pulses: within normal limits - Abdominal General gastrointestinal: soft, non-tender, non-distended, normal bowel sounds - Integumentary Integumentary: Present: clear, warm, dry - Psychiatric Psychiatric: appropriate mood/affect - Neurologic Neurologic: CNII-XII intact, moves all extremities - Allied Health Allied health notes reviewed: nursing Results - Labs CBC & Chem 7: 08/20/21 04:57 08/20/21 04:57 Labs: Laboratory Last Values WBC 8.1 K/mm3 (4.5-11.0) 08/19/21 04:40 RBC 5.53 M/mm3 (3.65-5.03) H 08/19/21 04:40 Hgb 12.1 gm/dl (11.8-15.2) 08/20/21 04:57 Hct 37.4 % (35.5-45.6) 08/20/21 04:57 MCV 71 fl (84-94) L 08/19/21 04:40 MCH 23 pg (28-32) L 08/19/21 04:40 MCHC 32 % (32-34) 08/19/21 04:40 RDW 15.9 % (13.2-15.2) H 08/19/21 04:40 Plt Count 158 K/mm3 (140-440) 08/19/21 04:40 Lymph % (Auto) 13.9 % (13.4-35.0) 08/19/21 04:40 [place] % (Auto) 9.3 % (0.0-7.3) H 08/19/21 04:40 Eos % (Auto) 0.6 % (0.0-4.3) 08/19/21 04:40 Baso % (Auto) 0.1 % (0.0-1.8) 08/19/21 04:40 Lymph # (Auto) 1.1 K/mm3 (1.2-5.4) L 08/19/21 04:40 [place] # (Auto) 0.7 K/mm3 (0.0-0.8) 08/19/21 04:40 Eos # (Auto) 0.0 K/mm3 (0.0-0.4) 08/19/21 04:40 Baso # (Auto) 0.0 K/mm3 (0.0-0.1) 08/19/21 04:40 Seg Neutrophils % 76.1 % (40.0-70.0) H 08/19/21 04:40 Seg Neutrophils # 6.1 K/mm3 (1.8-7.7) 08/19/21 04:40 PT 13.9 Sec. (12.2-14.9) 08/17/21 22:40 INR 0.97 (0.87-1.13) 08/17/21 22:40 Sodium 138 mmol/L (137-145) 08/20/21 04:57 Potassium 4.4 mmol/L (3.6-5.0) 08/20/21 04:57 Chloride 102.7 mmol/L (98-107) 08/20/21 04:57 Carbon Dioxide 19 mmol/L (22-30) L 08/20/21 04:57 Anion Gap 21 mmol/L 08/20/21 04:57 BUN 69 mg/dL (9-20) H 08/20/21 04:57 Creatinine 9.8 mg/dL (0.8-1.3) H 08/20/21 04:57 Estimated GFR 7 ml/min 08/20/21 04:57 BUN/Creatinine Ratio 7 % 08/20/21 04:57 Glucose 106 mg/dL (75-100) H 08/20/21 04:57 Calcium 9.1 mg/dL (8.4-10.2) 08/20/21 04:57 Total Bilirubin 0.60 mg/dL (0.1-1.2) 08/17/21 22:40 AST 21 units/L (5-40) 08/17/21 22:40 ALT 13 units/L (7-56) 08/17/21 22:40 Alkaline Phosphatase 86 units/L (35-129) 08/17/21 22:40 Total Protein 7.2 g/dL (6.3-8.2) 08/17/21 22:40 Albumin 4.0 g/dL (3.9-5) 08/17/21 22:40 Albumin/Globulin Ratio 1.3 % 08/17/21 22:40 Lipase 14 units/L (13-60) 08/17/21 22:40 Blood Type B POSITIVE 08/17/21 22:45 Antibody Screen Negative 08/17/21 22:45 Microbiology: Microbiology 08/18/21 01:04 Peripheral/Venous Blood Culture - Preliminary NO GROWTH AFTER 48 HOURS 08/18/21 01:36 Peripheral/Venous Blood Culture - Preliminary NO GROWTH AFTER 48 HOURS Banegas/IV: Voiding Method Condom Catheter Active Medications - Current Medications Current Medications: Generic Name Dose Route Start Last Admin Trade Name Freq PRN Reason Stop Dose Admin Acetaminophen 650 mg 08/18/21 05:25 Acetaminophen 325 Mg Tab PO Q4H PRN Pain MILD(1-3)/Fever >100.5/SIMMS Albuterol 2.5 mg 08/18/21 05:25 Albuterol 2.5 Mg/3 Ml Nebu IH Q3HRT PRN Shortness Of Breath Azithromycin 500 mg 08/19/21 12:00 08/20/21 09:20 Azithromycin 250 Mg Tab PO 08/23/21 10:01 500 mg QDAY JUANI Administration Protocol Ceftriaxone Sodium 2 gm in 100 mls @ 200 mls/hr 08/18/21 10:00 08/20/21 09:22 Rocephin/Ns 2 Gm/100 Ml IV 08/22/21 10:29 200 mls/hr Q24HR JUANI Administration Protocol Morphine Sulfate 2 mg 08/18/21 05:25 Morphine 2 Mg/1 Ml Inj IV Q4H PRN Pain, Moderate (4-6) Morphine Sulfate 4 mg 08/18/21 05:25 Morphine 4 Mg/1 Ml Inj IV Q4H PRN Pain , Severe (7-10) Ondansetron HCl 4 mg 08/18/21 05:25 Ondansetron 4 Mg/2 Ml Inj IV Q8H PRN Nausea And Vomiting Pantoprazole Sodium 40 mg 08/19/21 10:00 08/20/21 09:19 Pantoprazole 40 Mg Inj IV 40 mg BID JUANI Administration Sodium Chloride 10 ml 08/18/21 10:00 08/20/21 09:21 Sodium Chloride 0.9% 10 Ml Flush Syringe IV 10 ml BID [facility] Administration Sodium Chloride 10 ml 08/18/21 05:25 Sodium Chloride 0.9% 10 Ml Flush Syringe IV PRN PRN LINE FLUSH
--- NOTE | 2021-08-20 14:44 | Gastroenterology Progress Note ---
Assessment and Plan # Hematemesis - report of vomiting blood prior to bright brought to the ED. - no episode of bleeding since admission. - Hgb stable - CT abdomen pelvis shows right-sided pneumonia moderate distention of the stomach with fluid small hiatal hernia fluid-filled. - h/o CVA and vascular dementia. - No evidence of bleeding since admission. - KUB nonobstructive pattern Rec - cont to monitor H/H and transfuse as needed. - monitor for signs of bleeding - cont with PPI IV. - advance diet as tolerated. - given no current signs of active bleeding, will hold off endoscopy at this time. - - Patient Problems (1) GI bleed Current Visit: Yes Status: Acute Subjective Date of service: 08/20/21 Interval history: Patient without any bowel movement overnight per nursing. Tolerating liquid diet. Denies any abdominal pain. Is having catheter placed with urology. For BPH. Objective - Constitutional Vitals: Temp Pulse Resp BP Pulse Ox 100 F H 106 H 20 137/92 100 08/20/21 13:30 08/20/21 13:30 08/20/21 13:30 08/20/21 13:30 08/20/21 13:30 General appearance: no acute distress - Neck Neck: supple - Respiratory Respiratory effort: normal - Cardiovascular Rhythm: regular Heart Sounds: Present: S1 & S2 - Gastrointestinal General gastrointestinal: Present: soft, non-tender, non-distended - Integumentary Integumentary: Present: clear, warm - Labs CBC & Chem 7: 08/20/21 04:57 08/20/21 04:57 Labs: Laboratory Results - last 24 hr 08/20/21 08/20/21 04:57 04:57 Hgb 12.1 Hct 37.4 Sodium 138 Potassium 4.4 Chloride 102.7 Carbon Dioxide 19 L Anion Gap 21 BUN 69 H Creatinine 9.8 H Estimated GFR 7 BUN/Creatinine Ratio 7 Glucose 106 H Calcium 9.1 - Imaging x-ray: report reviewed CT scan: report reviewed
[2021-08-20 16:04] LABS: Bilirubin,Urine NEG (Negative); Blood,Urine LG (Negative); Color,Urine Yellow (Yellow); Protein,Urine <15 mg/dL mg/dL (Negative); Urobilinogen,Urine < 2.0 mg/dL (<2.0)
[2021-08-20 16:15] LABS: Creatinine,Urine 136.6 mg/dL (0.1-20.0)
[2021-08-20 16:19] LABS: Mucus,Urine FEW /HPF
[2021-08-20 16:27] LABS: RBC,Urine > 182.0 /HPF (0.0-6.0)
--- NOTE | 2021-08-20 18:32 | Consultation ---
History of Present Illness - Reason for Consult Consult date: 08/20/21 - History of Present Illness new to our service This is a 60 yo AAM with history of Hypertension, CVA with left sided weakness, who presents to ER with complaints of vomiting blood. Patient is on ASA/plavix. Upon exam pt is poor historian, not able to give any detailed history. In ER patient was found to be tachycardic with HR 120-130s. Labs showed hemoglobin of 14.3 and hematocrit 44.8, patient Hemoccult is positive. labs also showed elevated BUN/Cr at 35/3mg/dl on admission, which rising further to 56/6.8mg/dl for which renal consult is requested. CT A/P showed gastric distention with associated fluid filled hiatal hernia, r sided pneumonia and prominent bladder distention with resultant distention of the renal collecting systems and ureters. Renal consult is requested for management of ROYA. abd slightly distended uncirc---wire romo----15F a/p retention bph--- home with romo Past History Past Medical History: hypertension, stroke Past Surgical History: No surgical history Social history: no significant social history Family history: hypertension Medications and Allergies Allergies Allergy/AdvReac Type Severity Reaction Status Date / Time No Known Allergies Allergy Verified 08/17/21 22:29 Active Meds: Active Medications Acetaminophen (Acetaminophen 325 Mg Tab) 650 mg PO Q4H PRN PRN Reason: Pain MILD(1-3)/Fever >100.5/SIMMS Albuterol (Albuterol 2.5 Mg/3 Ml Nebu) 2.5 mg IH Q3HRT PRN PRN Reason: Shortness Of Breath Azithromycin (Azithromycin 250 Mg Tab) 500 mg PO QDAY [facility]UANI; Protocol Stop: 08/23/21 10:01 Last Admin: 08/20/21 09:20 Dose: 500 mg Ceftriaxone Sodium (Rocephin/Ns 2 Gm/100 Ml) 2 gm in 100 mls @ 200 mls/hr IV Q24HR [facility]UANI; Protocol Stop: 08/22/21 10:29 Last Admin: 08/20/21 09:22 Dose: 200 mls/hr Morphine Sulfate (Morphine 2 Mg/1 Ml Inj) 2 mg IV Q4H PRN PRN Reason: Pain, Moderate (4-6) Morphine Sulfate (Morphine 4 Mg/1 Ml Inj) 4 mg IV Q4H PRN PRN Reason: Pain , Severe (7-10) Ondansetron HCl (Ondansetron 4 Mg/2 Ml Inj) 4 mg IV Q8H PRN PRN Reason: Nausea And Vomiting Pantoprazole Sodium (Pantoprazole 40 Mg Inj) 40 mg IV BID [facility] Last Admin: 08/20/21 09:19 Dose: 40 mg Sodium Chloride (Sodium Chloride 0.9% 10 Ml Flush Syringe) 10 ml IV BID [facility] Last Admin: 08/20/21 09:21 Dose: 10 ml Sodium Chloride (Sodium Chloride 0.9% 10 Ml Flush Syringe) 10 ml IV PRN PRN PRN Reason: LINE FLUSH Exam - Constitutional Vitals: Temp Pulse Resp BP Pulse Ox 99.1 F 96 H 20 125/80 96 08/20/21 16:52 08/20/21 16:52 08/20/21 16:52 08/20/21 16:52 08/20/21 16:52 Results - Labs CBC & Chem 7: 08/20/21 04:57 08/20/21 04:57 Labs: Abnormal lab results 08/20/21 08/20/21 Range/Units 04:57 09:23 Carbon Dioxide 19 L (22-30) mmol/L BUN 69 H (9-20) mg/dL Creatinine 9.8 H (0.8-1.3) mg/dL Glucose 106 H (75-100) mg/dL Urine Creatinine 136.6 H (0.1-20.0) mg/dL Urine Total Protein 15 H (5-11.8) mg/dL
[2021-08-21 05:59] LABS: Calcium 9.1 mg/dL (8.4-10.2)
[2021-08-21] MEDS ORDERED: LIDOCAINE 2% UROJECT 10 ML JELLY ONE (09:00)
[2021-08-21 09:35] LABS: Hematocrit 32.6 % (35.5-45.6); Hemoglobin 10.5 gm/dl (11.8-15.2); Mean Corpuscular HGB Conc 32 % (32-34); Mean Corpuscular Volume 70 fl (84-94); Platelet Count 168 K/mm3 (140-440); Red Blood Count 4.63 M/mm3 (3.65-5.03)
[2021-08-21] MEDS ORDERED: LACTATED RINGERS 1,000 ML IV ONE (10:50)
[2021-08-21] MEDS: PANTOPRAZOLE 40 MG INJ IV SCH ×2 (10:57→21:34)
[2021-08-21] MEDS: levoFLOXacin 500 MG TAB PO SCH (10:57)
[2021-08-21] MEDS ORDERED: DEXTROSE 5% IN WATER 1,000 ML IV SCH (11:00)
--- NOTE | 2021-08-21 11:00 | Discharge Summary ---
Providers - Providers Date of Admission: 08/18/21 05:25 Date of discharge: 08/21/21 Attending physician: VIDAL POLANCO MD 08/18/21 05:25 Consult to Physician [CONS] Routine Comment: Consulting Provider: TJ KWAN Physician Instructions: Reason For Exam: gib Consult to Physician [CONS] Routine Comment: Consulting Provider: NICOLE PEGUERO Physician Instructions: Reason For Exam: roya 08/19/21 14:56 Consult to Physician [CONS] Routine Comment: Consulting Provider: ELIZABETH WHITMAN Physician Instructions: Reason For Exam: Urinary outlet obstruction Primary care physician: TWITCHELL OPERATOR Hospitalization Reason for admission: Upper GI bleed/hematemesis, ROYA on CKD stage 3 Condition: Stable Pertinent studies: Reviewed. Procedures: Banegas placement by urology. Hospital course: Patient is a 61-year-old male with past medical history of acute ischemic CVA with left-sided weakness and hypertension who presented to the ED with reported episode of hematemesis while at home. The patient himself is unable to give a detailed history given deficits from his previous CVA. The patient is currently on aspirin and Plavix for antiplatelet therapy. Patient denied any blood in his stool or episodes of melena or hematochezia. In the ED the patient was found to be hemodynamically stable with a hemoglobin of 14.3. The patient's labs are remarkable for a creatinine of 3.0. The patient underwent CT abdomen and pelvis without contrast revealing right-sided pneumonia, prominent bladder distention with resultant distention of the renal collecting systems and ureters, and gastric distention with associated fluid-filled hiatal hernia. Patient was started on Rocephin and azithromycin for community-acquired pneumonia coverage. Nephrology was consulted for further management. It was deemed that the patient had urinary obstruction likely leading to his worsening renal function. Gastroenterology was consulted for management of reported hematemesis, the patient was placed on GI bleed protocol. Patient was monitored and found to have no decrease in his hemoglobin. Patient has since been weaned off of IV Protonix and will be discharged home with p.o. Protonix 40 mg daily x4 weeks. Urology was consulted for Banegas placement in the setting of likely BPH. As a result the patient's creatinine (which had risen to 9.8) has since improved to 2.2. Patient will be discharging home with a Banegas catheter. Patient is medically clear for discharge. Disposition: 01 HOME / SELF CARE / HOMELESS Final Discharge Diagnosis (Prints w/discharge instructions): Urinary o bstruction, BPH, ROYA on CKD stage 3, community-acquired pneumonia, history of CVA with focal deficits, hypernatremia Time spent for discharge: 45 min Core Measure Documentation - Palliative Care Palliative Care/ Comfort Measures: Not Applicable - Core Measures Any of the following diagnoses?: none Exam - Constitutional Vitals: Temp Pulse Resp BP Pulse Ox 99.4 F 98 H 16 111/68 95 08/21/21 06:43 08/21/21 07:21 08/21/21 07:21 08/21/21 07:21 08/21/21 07:21 General appearance: Present: no acute distress, well-nourished - EENT Eyes: Present: PERRL, EOM intact ENT: hearing intact, clear oral mucosa, dentition normal - Neck Neck: Present: supple, normal ROM - Respiratory Respiratory effort: normal Respiratory: bilateral: CTA - Cardiovascular Rhythm: regular Heart Sounds: Present: S1 & S2 - Extremities Extremities: no ischemia, pulses intact, pulses symmetrical, No edema, normal temperature, normal color Peripheral Pulses: within normal limits - Abdominal General gastrointestinal: Present: soft, non-tender, non-distended, normal bowel sounds Male genitourinary: Present: deferred - Rectal Rectal Exam: deferred - Integumentary Integumentary: Present: clear, warm, dry - Musculoskeletal Musculoskeletal: left sided weakness - Psychiatric Psychiatric: appropriate mood/affect - Neurologic Neurologic: CNII-XII intact - Allied Health Allied health notes reviewed: nursing Plan Activity: no restrictions Diet: low salt Additional Instructions: Patient is a 61-year-old male with past medical history of acute ischemic CVA with left-sided weakness and hypertension who presented to the ED with reported episode of hematemesis while at home. The patient himself is unable to give a detailed history given deficits from his previous CVA. The patient is currently on aspirin and Plavix for antiplatelet therapy. Patient denied any blood in his stool or episodes of melena or hematochezia. In the ED the patient was found to be hemodynamically stable with a hemoglobin of 14.3. The patient's labs are remarkable for a creatinine of 3.0. The patient underwent CT abdomen and pelvis without contrast revealing right-sided pneumonia, prominent bladder distention with resultant distention of the renal collecting systems and ureters, and gastric distention with associated fluid- filled hiatal hernia. Patient was started on Rocephin and azithromycin for community-acquired pneumonia coverage. Nephrology was consulted for further management. It was deemed that the patient had urinary obstruction likely leading to his worsening renal function. Gastroenterology was consulted for management of reported hematemesis, the patient was placed on GI bleed protocol. Patient was monitored and found to have no decrease in his hemoglobin. Patient has since been weaned off of IV Protonix and will be discharged home with p.o. Protonix 40 mg daily x4 weeks. Urology was consulted for Banegas placement in the setting of likely BPH. As a result the patient's creatinine (which had risen to 9.8) has since improved to 2.2. Patient will be discharging home with a Banegas catheter. Patient is medically clear for discharge. Care Plan Goals: Patient is medically clear for discharge. Assessment: Patient is a 61-year-old male with past medical history of acute ischemic CVA with left-sided weakness and hypertension who presented to the ED with reported episode of hematemesis while at home. The patient himself is unable to give a detailed history given deficits from his previous CVA. The patient is currently on aspirin and Plavix for antiplatelet therapy. Patient denied any blood in his stool or episodes of melena or hematochezia. In the ED the patient was found to be hemodynamically stable with a hemoglobin of 14.3. The patient's labs are remarkable for a creatinine of 3.0. The patient underwent CT abdomen and pelvis without contrast revealing right-sided pneumonia, prominent bladder distention with resultant distention of the renal collecting systems and ureters, and gastric distention with associated fluid-filled hiatal hernia. Patient was started on Rocephin and azithromycin for community-acquired pneumonia coverage. Nephrology was consulted for further management. It was deemed that the patient had urinary obstruction likely leading to his worsening renal function. Gastroenterology was consulted for management of reported hematemesis, the patient was placed on GI bleed protocol. Patient was monitored and found to have no decrease in his hemoglobin. Patient has since been weaned off of IV Protonix and will be discharged home with p.o. Protonix 40 mg daily x4 weeks. Urology was consulted for Banegas placement in the setting of likely BPH. As a result the patient's creatinine (which had risen to 9.8) has since improved to 2.2. Patient will be discharging home with a Banegas catheter. Patient is medically clear for discharge. Follow up with: PRIMARY CARE, [Primary Care Provider] - 3-5 Days ELIZABETH WHITMAN MD [Staff Physician] - 6 Weeks Prescriptions: levoFLOXacin [Levaquin TAB] 500 mg PO Q48H #2 tablet
--- NOTE | 2021-08-21 12:41 | Progress Note ---
Assessment and Plan - Patient Problems (1) ROYA (acute kidney injury) Current Visit: Yes Status: Acute Plan to address problem: acute renal failure likely secondary to urinary retention with early hydroureter/hydronephrosis as evidenced by CT A/P. Renal function improving s/p romo placement, follow urology recommendations (2) Urinary retention Current Visit: Yes Status: Acute Plan to address problem: s/p romo placement, follow urology recommendations (3) Metabolic acidosis Current Visit: Yes Status: Acute Plan to address problem: resolved (4) Hematemesis Current Visit: Yes Status: Acute Plan to address problem: follow GI recommendations Subjective Date of service: 08/21/21 Principal diagnosis: ROYA Interval history: pt awake, alert, s/p romo placement with increased UOP and improving renal function Objective - Vital Signs Vital signs: Vital Signs - 12hr 08/21/21 08/21/21 08/21/21 04:00 06:43 07:21 Temperature 99.4 F Pulse Rate 93 H 98 H 98 H Respiratory 17 16 Rate Blood Pressure 125/80 111/68 [Right] O2 Sat by Pulse 99 95 Oximetry - General Appearance General appearance: well-developed, well-nourished, appears stated age EENT: ATNC, PERRL, mucous membranes moist Neck: no JVD Respiratory: Present: Clear to Ascultation Cardiology: regular, S1S2 Gastrointestinal: normoactive bowel sounds Integumentary: no rash, other (no edema ) Neurologic: no focal deficit, alert and oriented x3, strength 5/5, CN 3-12 intact - Lab 08/21/21 09:00 08/21/21 05:15 Most recent lab results Calcium 9.1 mg/dL (8.4-10.2) 08/21/21 05:15 Phosphorus 2.90 mg/dL (2.5-4.5) 08/21/21 05:15 Magnesium 1.80 mg/dL (1.7-2.3) 08/21/21 05:15 Urine Creatinine 136.6 mg/dL (0.1-20.0) H 08/20/21 09:23 Urine Sodium 95 mmol/L 08/20/21 09:23 Urine Total Protein 15 mg/dL (5-11.8) H 08/20/21 09:23 Medications & Allergies - Medications Allergies/Adverse Reactions: Allergies No Known Allergies Allergy (Verified 08/17/21 22:29) Home Medications: Home Medications Medication Instructions Recorded Confirmed Last Taken Type Pantoprazole [Protonix] 40 mg PO QDAY #30 tablet 08/21/21 Unknown Rx levoFLOXacin [Levaquin TAB] 500 mg PO Q48H #2 tablet 08/21/21 Unknown Rx Active Medications: Generic Name Dose Route Start Last Admin Trade Name Freq PRN Reason Stop Dose Admin Acetaminophen 650 mg 08/18/21 05:25 Acetaminophen 325 Mg Tab PO Q4H PRN Pain MILD(1-3)/Fever >100.5/SIMMS Albuterol 2.5 mg 08/18/21 05:25 Albuterol 2.5 Mg/3 Ml Nebu IH Q3HRT PRN Shortness Of Breath Dextrose 1,000 mls @ 500 mls/hr 08/21/21 11:00 08/21/21 11:21 D5w IV 08/21/21 12:59 500 mls/hr DIRECT JUANI Administration Levofloxacin 500 mg 08/21/21 08:00 08/21/21 10:57 Levofloxacin 500 Mg Tab PO 500 mg Q48H JUANI Administration Protocol Morphine Sulfate 2 mg 08/18/21 05:25 Morphine 2 Mg/1 Ml Inj IV Q4H PRN Pain, Moderate (4-6) Morphine Sulfate 4 mg 08/18/21 05:25 Morphine 4 Mg/1 Ml Inj IV Q4H PRN Pain , Severe (7-10) Ondansetron HCl 4 mg 08/18/21 05:25 Ondansetron 4 Mg/2 Ml Inj IV Q8H PRN Nausea And Vomiting Pantoprazole Sodium 40 mg 08/19/21 10:00 08/21/21 10:57 Pantoprazole 40 Mg Inj IV 40 mg BID JUANI Administration Sodium Chloride 10 ml 08/18/21 10:00 08/21/21 10:58 Sodium Chloride 0.9% 10 Ml Flush Syringe IV 10 ml BID JUANI Administration Sodium Chloride 10 ml 08/18/21 05:25 Sodium Chloride 0.9% 10 Ml Flush Syringe IV PRN PRN LINE FLUSH
--- NOTE | 2021-08-21 16:11 | Gastroenterology Progress Note ---
Assessment and Plan # Hematemesis - report of vomiting blood prior to bright brought to the ED. - CT abdomen pelvis shows right-sided pneumonia moderate distention of the stomach with fluid small hiatal hernia fluid-filled. - h/o CVA and vascular dementia. - No evidence of bleeding since admission. - KUB nonobstructive pattern - per nursing, large dark stools today. - Hgb trended down to 10 from 12 yesterday. Rec - cont to monitor H/H and transfuse as needed. - monitor for signs of bleeding - cont with PPI IV. - will plan for EGD tomorrow. - clear liquids NPO MN. - attempted to reach family but no answer. Will try again. - Patient Problems (1) GI bleed Current Visit: Yes Status: Acute Subjective Date of service: 08/21/21 Principal diagnosis: ROYA Interval history: Per nursing, patient had a large loose stools, that was dark in color. Denies nausea/vomiting or abdominal pain. Objective - Constitutional Vitals: Temp Pulse Resp BP Pulse Ox 99.4 F 98 H 16 111/68 95 08/21/21 06:43 08/21/21 07:21 08/21/21 07:21 08/21/21 07:21 08/21/21 07:21 General appearance: no acute distress - EENT Eyes: EOM intact - Respiratory Respiratory effort: normal - Gastrointestinal General gastrointestinal: Present: soft, non-tender, non-distended - Integumentary Integumentary: Present: clear, warm - Labs CBC & Chem 7: 08/21/21 09:00 08/21/21 05:15 Labs: Laboratory Results - last 24 hr 08/20/21 08/20/21 08/21/21 09:23 09:23 05:15 WBC RBC Hgb Hct MCV MCH MCHC RDW Plt Count Sodium 147 H D Potassium 4.2 Chloride 113.3 H Carbon Dioxide 23 Anion Gap 15 BUN 29 H Creatinine 2.2 H D Estimated GFR 37 BUN/Creatinine Ratio 13 Glucose 90 Calcium 9.1 Phosphorus 2.90 Magnesium 1.80 Urine Color Yellow Urine Turbidity Clear Urine pH 5.0 Ur Specific [place] 1.013 Urine Protein <15 mg/dl Urine Glucose (UA) Neg Urine Ketones Neg Urine Blood Lg Urine Nitrite Neg Urine Urobilinogen < 2.0 Ur Leukocyte Esterase Neg Urine WBC (Auto) 5.0 Urine RBC (Auto) > 182.0 U Epithel Cells (Auto) 2.0 Urine Mucus Few Urine Creatinine 136.6 H Urine Sodium 95 Urine Total Protein 15 H Coronavirus (PCR) 08/21/21 08/21/21 09:00 11:03 WBC 8.3 RBC 4.63 Hgb 10.5 L Hct 32.6 L MCV 70 L MCH 23 L MCHC 32 RDW 15.0 Plt Count 168 Sodium Potassium Chloride Carbon Dioxide Anion Gap BUN Creatinine Estimated GFR BUN/Creatinine Ratio Glucose Calcium Phosphorus Magnesium Urine Color Urine Turbidity Urine pH Ur Specific [place] Urine Protein Urine Glucose (UA) Urine Ketones Urine Blood Urine Nitrite Urine Urobilinogen Ur Leukocyte Esterase Urine WBC (Auto) Urine RBC (Auto) U Epithel Cells (Auto) Urine Mucus Urine Creatinine Urine Sodium Urine Total Protein Coronavirus (PCR) Negative
--- NOTE | 2021-08-22 08:19 | Anesthesia Consultation ---
Anesthesia Consult and Med Hx Date of service: 08/22/21 - Airway Anesthetic Teeth Evaluation: Poor (multiple missing, broken teeth) ROM Head & Neck: Adequate Mental/Hyoid Distance: Adequate Mallampati Class: Class II Intubation Access Assessment: Probably Good - Pre-Operative Health Status ASA Pre-Surgery Classification: ASA3 Proposed Anesthetic Plan: MAC - Pulmonary Hx Asthma: No COPD: No Hx Pneumonia: No - Cardiovascular System Hx Hypertension: Yes - Central Nervous System CVA: Yes (non verbal) - Gastrointestinal Hx Ulcer: Yes (GI bleed) - Endocrine Hx Renal Disease: Yes (ROYA) Hx End Stage Renal Disease: No
[2021-08-22] MEDS ORDERED: LIDOCAINE MPF (2%) 20 MG/1 ML VIAL 5 ML ONE (08:22)
[2021-08-22] MEDS ORDERED: WATER FOR IRRIG STERILE 250 ML BOTTLE IR ONE (08:22)
[2021-08-22] MEDS ORDERED: WATER FOR IRRIG STERILE 1,000 ML BOTTLE ONE (08:22)
[2021-08-22] MEDS ORDERED: propofoL 200 MG/20 ML VIAL IV ONE (08:23)
--- NOTE | 2021-08-22 08:24 | Anesthesia Day of Surgery ---
Anesthesia Day of Surgery - Day of Surgery Patient Examined: Yes Patient H&P Reviewed: Yes Patient is NPO: Yes
--- NOTE | 2021-08-22 08:41 | Progress Note ---
Assessment and Plan Assessment and plan: #Hematemesisruled out #Upper GI bleedruled out Reported event prior to admission. No bleeding has been documented or seen during this hospitalization. Transitioning IV pantoprazole 40 mg twice daily to p.o 40 mg daily. Continue to trend H&H. Gastroenterology consulted; appreciate recs. Upper endoscopy performed (08/22/2021) revealing erosive gastritis. A biopsy was obtained. Transition to renal diet. #Urinary obstruction #BPH Visualized bladder distention on CT abdomen/pelvis noncontrast Urology consulted for Banegas placement; appreciate recs. Banegas catheter placed on 08/20/2021. Starting Flomax 0.8 mg daily. Upon discharge patient will leave with Banegas catheter. Patient will follow with urology in outpatient setting. #ROYA on CKD stage III -Creatinine 3.0--> 4.4--> 6.8--> 9.8--> 2.2 -ROYA secondary to urinary obstruction -Nephrology consulted; appreciate recs. -Renally dose medications and avoid nephrotoxic drugs. Renal diet. #Presumed community-acquired pneumonia Transitioned Rocephin 2 g daily and p.o. azithromycin 500 mg daily to Levaquin 500 mg every 48 hours for a total of 5-day course. #History of CVA with focal deficits Continue goal-directed medical therapy #Advanced care planning -Disease education conducted, care plan discussed, diagnoses discussed, prognosis discussed, and patient acknowledges understanding with care plan -Time: +30 min #Discharge planning - Patient is pending physical therapy evaluation and recommendations for patient's debility. - Case management has been made aware. - Discharge is tentatively 24-48 hours Disposition Plan: Continue medical management Total Time Spent with Patient (Minutes): 45 min History Interval history: Patient was not discharged home yesterday due to concerns for worsening debility/decreased functional status. Physical therapy consulted for further evaluation. Hospitalist Physical - Constitutional Vitals: Temp Pulse Resp BP Pulse Ox 98.2 F 97 H 18 128/83 100 08/22/21 03:57 08/22/21 04:00 08/22/21 03:57 08/22/21 03:57 08/22/21 03:57 General appearance: Present: no acute distress, well-nourished - EENT Eyes: Present: PERRL, EOM intact ENT: hearing intact, clear oral mucosa, dentition normal - Neck Neck: Present: supple, normal ROM - Respiratory Respiratory effort: normal Respiratory: bilateral: CTA - Cardiovascular Rhythm: regular Heart Sounds: Present: S1 & S2 - Extremities Extremities: no ischemia, pulses intact, pulses symmetrical, No edema, normal temperature, normal color Peripheral Pulses: within normal limits - Abdominal General gastrointestinal: soft, non-tender, non-distended, normal bowel sounds - Integumentary Integumentary: Present: clear, warm, dry - Psychiatric Psychiatric: appropriate mood/affect - Neurologic Neurologic: other (Left-sided weakness) - Allied Health Allied health notes reviewed: nursing Results - Labs CBC & Chem 7: 08/22/21 11:23 08/22/21 11:23 Labs: Laboratory Last Values WBC 8.3 K/mm3 (4.5-11.0) 08/21/21 09:00 RBC 4.63 M/mm3 (3.65-5.03) 08/21/21 09:00 Hgb 10.5 gm/dl (11.8-15.2) L 08/21/21 09:00 Hct 32.6 % (35.5-45.6) L 08/21/21 09:00 MCV 70 fl (84-94) L 08/21/21 09:00 MCH 23 pg (28-32) L 08/21/21 09:00 MCHC 32 % (32-34) 08/21/21 09:00 RDW 15.0 % (13.2-15.2) 08/21/21 09:00 Plt Count 168 K/mm3 (140-440) 08/21/21 09:00 Lymph % (Auto) 13.9 % (13.4-35.0) 08/19/21 04:40 [place] % (Auto) 9.3 % (0.0-7.3) H 08/19/21 04:40 Eos % (Auto) 0.6 % (0.0-4.3) 08/19/21 04:40 Baso % (Auto) 0.1 % (0.0-1.8) 08/19/21 04:40 Lymph # (Auto) 1.1 K/mm3 (1.2-5.4) L 08/19/21 04:40 [place] # (Auto) 0.7 K/mm3 (0.0-0.8) 08/19/21 04:40 Eos # (Auto) 0.0 K/mm3 (0.0-0.4) 08/19/21 04:40 Baso # (Auto) 0.0 K/mm3 (0.0-0.1) 08/19/21 04:40 Seg Neutrophils % 76.1 % (40.0-70.0) H 08/19/21 04:40 Seg Neutrophils # 6.1 K/mm3 (1.8-7.7) 08/19/21 04:40 PT 13.9 Sec. (12.2-14.9) 08/17/21 22:40 INR 0.97 (0.87-1.13) 08/17/21 22:40 Sodium 147 mmol/L (137-145) H D 08/21/21 05:15 Potassium 4.2 mmol/L (3.6-5.0) 08/21/21 05:15 Chloride 113.3 mmol/L (98-107) H 08/21/21 05:15 Carbon Dioxide 23 mmol/L (22-30) 08/21/21 05:15 Anion Gap 15 mmol/L 08/21/21 05:15 BUN 29 mg/dL (9-20) H 08/21/21 05:15 Creatinine 2.2 mg/dL (0.8-1.3) H D 08/21/21 05:15 Estimated GFR 37 ml/min 08/21/21 05:15 BUN/Creatinine Ratio 13 % 08/21/21 05:15 Glucose 90 mg/dL (75-100) 08/21/21 05:15 Calcium 9.1 mg/dL (8.4-10.2) 08/21/21 05:15 Phosphorus 2.90 mg/dL (2.5-4.5) 08/21/21 05:15 Magnesium 1.80 mg/dL (1.7-2.3) 08/21/21 05:15 Total Bilirubin 0.60 mg/dL (0.1-1.2) 08/17/21 22:40 AST 21 units/L (5-40) 08/17/21 22:40 ALT 13 units/L (7-56) 08/17/21 22:40 Alkaline Phosphatase 86 units/L (35-129) 08/17/21 22:40 Total Protein 7.2 g/dL (6.3-8.2) 08/17/21 22:40 Albumin 4.0 g/dL (3.9-5) 08/17/21 22:40 Albumin/Globulin Ratio 1.3 % 08/17/21 22:40 Lipase 14 units/L (13-60) 08/17/21 22:40 Urine Color Yellow (Yellow) 08/20/21 09:23 Urine Turbidity Clear (Clear) 08/20/21 09:23 Urine pH 5.0 (5.0-7.0) 08/20/21 09:23 Ur Specific [place] 1.013 (1.003-1.030) 08/20/21 09:23 Urine Protein <15 mg/dl mg/dL (Negative) 08/20/21 09:23 Urine Glucose (UA) Neg mg/dL (Negative) 08/20/21 09:23 Urine Ketones Neg mg/dL (Negative) 08/20/21 09:23 Urine Blood Lg (Negative) 08/20/21 09:23 Urine Nitrite Neg (Negative) 08/20/21 09:23 Urine Bilirubin Neg (Negative) 08/20/21 09:23 Urine Urobilinogen < 2.0 mg/dL (<2.0) 08/20/21 09:23 Ur Leukocyte Esterase Neg (Negative) 08/20/21 09:23 Urine WBC (Auto) 5.0 /HPF (0.0-6.0) 08/20/21 09:23 Urine RBC (Auto) > 182.0 /HPF (0.0-6.0) 08/20/21 09:23 U Epithel Cells (Auto) 2.0 /HPF (0-13.0) 08/20/21 09:23 Urine Mucus Few /HPF 08/20/21 09:23 Urine Creatinine 136.6 mg/dL (0.1-20.0) H 08/20/21 09:23 Urine Sodium 95 mmol/L 08/20/21 09:23 Urine Total Protein 15 mg/dL (5-11.8) H 08/20/21 09:23 Coronavirus (PCR) Negative (Negative) 08/21/21 11:03 Blood Type B POSITIVE 08/17/21 22:45 Antibody Screen Negative 08/17/21 22:45 Microbiology: Microbiology 08/18/21 01:04 Peripheral/Venous Blood Culture - Preliminary NO GROWTH AFTER 4 DAYS 08/18/21 01:36 Peripheral/Venous Blood Culture - Preliminary NO GROWTH AFTER 4 DAYS Banegas/IV: Voiding Method Indwelling Catheter Active Medications - Current Medications Current Medications: Generic Name Dose Route Start Last Admin Trade Name Freq PRN Reason Stop Dose Admin Acetaminophen 650 mg 08/18/21 05:25 Acetaminophen 325 Mg Tab PO Q4H PRN Pain MILD(1-3)/Fever >100.5/SIMMS Albuterol 2.5 mg 08/18/21 05:25 Albuterol 2.5 Mg/3 Ml Nebu IH Q3HRT PRN Shortness Of Breath Sodium Chloride 1,000 mls @ 50 mls/hr 08/22/21 09:00 Nacl 0.9% 1000 Ml IV DIRECT JUANI Levofloxacin 500 mg 08/21/21 08:00 08/21/21 10:57 Levofloxacin 500 Mg Tab PO 500 mg Q48H JUANI Administration Protocol Morphine Sulfate 2 mg 08/18/21 05:25 Morphine 2 Mg/1 Ml Inj IV Q4H PRN Pain, Moderate (4-6) Morphine Sulfate 4 mg 08/18/21 05:25 Morphine 4 Mg/1 Ml Inj IV Q4H PRN Pain , Severe (7-10) Ondansetron HCl 4 mg 08/18/21 05:25 Ondansetron 4 Mg/2 Ml Inj IV Q8H PRN Nausea And Vomiting Pantoprazole Sodium 40 mg 08/19/21 10:00 08/21/21 21:34 Pantoprazole 40 Mg Inj IV 40 mg BID JUANI Administration Sodium Chloride 10 ml 08/18/21 10:00 08/22/21 08:04 Sodium Chloride 0.9% 10 Ml Flush Syringe IV 10 ml BID JUANI Administration Sodium Chloride 10 ml 08/18/21 05:25 Sodium Chloride 0.9% 10 Ml Flush Syringe IV PRN PRN LINE FLUSH Nutrition/Malnutrition Assess - Dietary Evaluation Nutrition/Malnutrition Findings: Nutrition Notes Start: 08/21/21 16:44 Freq: Status: Active Protocol: Document 08/21/21 16:44 BONNIE (Rec: 08/21/21 17:11 BONNIE [id number]) Nutrition Notes Need for Assessment generated from: ticket 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 Current Diet NPO (from 08/22 00:01). Labs/Tests 08/21: Na 147, Cl 113.3, BUN 29, Crea 2.2. Pertinent Medications 08/21: Nutritionally unremarkable. 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 Pt will be on NPO after midnight. Pt's PO intake of meals has been Fair (<75%), according to ADL notes. I will prescribe dietary supplements to compensate for poor or insufficient PO intake of meals to be ordered when pertinent. Pt is on Room Air, O2 saturation @ 98%, according to Physical Assessment History notes. Pt has missing teeth, according to Physical Assessment History notes. Procedure planned for 08/22: EGD, Pt on NPO after midnight, according to Progress notes. Pt shows no signs of concern for risk of malnutrition at the time, according to Physical Assessment History notes. Percent of energy/protein needs met: Pt will be on NPO after midnight. When pertinent resume Prescribed Clear Liquids Diet provides for energy/protein needs (590 Kcal/16 g) during LOS; additionally, Dietary Supplements will compensate for possible poor or insufficient PO intake of meals with 720 Kcal and 24 g of protein. Burn Absent Trauma Absent GI Symptoms Vomiting,Other Food Allergy No Skin Integrity/Comment Assessment WNL. 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 As Evidenced by Signs and Symptoms GI Bleed/Hematemesis/Melena. Is patient on ventilator? No Is Patient Ambulatory and/or Out of Bed Yes REE-([facility]-ambulatory/OOB) [ 6.594 [id number]] Calculation Used for Recommendations [facility] Additional Notes Protein: 1.25-1.5 g/Kg ABW; 101-122 g/day. Fluids: 1 ml/Kcal, or as per MD. Nutrition Intervention Change Diet Order: When pertinent resume Clear Liquid Diet. Add Supplement/Snack (indicate name/kcal When Pertinent, start 8 fl oz /protein ) Ensure Clear; TID. Provides kCal: 720 Provides Protein (gm) 24 Goal #1 Compensate, through dietary supplementation, for possible poor or insufficient PO intake of meals during LOS. Goal #2 Adjust the dietary intervention to better serve Pt's needs and clinical conditions during LOS. Follow-Up By: 08/28/21 Additional Comments When pertinent, continue monitoring food tolerance, %PO intake of meals, and BM.
--- NOTE | 2021-08-22 08:44 | Post Operative Note ---
Pre-op diagnosis: ABLA Post-op diagnosis: other (Gastritis/Hiatal Hernia) Findings: 1. Normal duodenum 2. Erosive gastritis (antrum); cold biopsy 3. Medium Hiatal Hernia 4. Normal Esophagus Procedure: EGD with cold biopsy Anesthesia: MAC Surgeon: THIERRY CEBALLOS Estimated blood loss: minimal Pathology: list (1. Gastric antrum) Specimen disposition: to lab Condition: stable Disposition: floor (Recs: 1. Advance diet. 2. Protonix daily therapy. 3. OK to discharge home per our service; we will sign off; please call with questions.)
--- NOTE | 2021-08-22 09:07 | Operative Report ---
DATE OF SURGERY: 08/22/2021 PROCEDURE PERFORMED: Esophagogastroduodenoscopy with cold biopsy. PREOPERATIVE DIAGNOSIS: Acute blood loss anemia. POSTOPERATIVE DIAGNOSES: Gastritis and hiatal hernia. ENDOSCOPIST: Gilberto Shen M.D. INSTRUMENT: The Olympus video endoscope. MEDICATIONS: MAC anesthesia by anesthesia services. COMPLICATIONS: No apparent complications. ESTIMATED BLOOD LOSS: Minimal. SPECIMENS: Gastric antrum. IMPLANTS: None. ASSISTANTS: None. CONDITION AT COMPLETION: Stable. TECHNIQUE: The patient's family was informed of the risks and benefits of the procedure. His niece gave consent; the patient has a history of a severe stroke and is unable to provide consent. PROCEDURE NOTE: After consent was obtained, he was placed in the left lateral decubitus position. The above sedative medications were given. His vital signs remained stable throughout the procedure. The instrument was advanced from the mouth to the second portion of the duodenum under direct visualization. At that point, the bowel was insufflated and the endoscope was slowly withdrawn. FINDINGS: 1. Normal duodenum. 2. Erosive gastritis in the antrum of the stomach; cold biopsy taken. 3. Medium size hiatal hernia. 4. Normal esophagus. RECOMMENDATIONS: 1. Advance diet. 2. Protonix daily therapy. 3. Okay to discharge home per our service. 4. Okay to resume anticoagulation for stroke prophylaxis if the patient is on aspirin and Plavix. 5. I suspect some of the anemia is due to the patient's chronic ill health and malnutrition given his physical appearance. 6. We will sign off; please call with questions. TID: [id number] RECEIPT: [id number] SHYANNE/EMILY
--- NOTE | 2021-08-22 09:28 | Progress Note ---
Assessment and Plan - Patient Problems (1) ROYA (acute kidney injury) Current Visit: Yes Status: Acute Plan to address problem: acute renal failure likely secondary to urinary retention with early hydroureter/hydronephrosis as evidenced by CT A/P. Renal function improving s/p romo placement, follow urology recommendations (2) Urinary retention Current Visit: Yes Status: Acute Plan to address problem: s/p romo placement, follow urology recommendations (3) Metabolic acidosis Current Visit: Yes Status: Acute Plan to address problem: resolved (4) Hematemesis Current Visit: Yes Status: Acute Plan to address problem: follow GI recommendations Subjective Date of service: 08/22/21 Principal diagnosis: ROYA Interval history: pt awake, alert, s/p romo placement with increased UOP and improving renal function Objective - Vital Signs Vital signs: Vital Signs - 12hr 08/21/21 08/22/21 08/22/21 23:00 03:57 04:00 Temperature 98.7 F 98.2 F Pulse Rate 122 H 93 H 97 H Respiratory 16 18 Rate Blood Pressure 128/83 Blood Pressure 141/87 [Right] O2 Sat by Pulse 91 100 Oximetry 08/22/21 09:19 Temperature 98.5 F Pulse Rate 89 Respiratory 20 Rate Blood Pressure Blood Pressure 113/68 [Right] O2 Sat by Pulse 98 Oximetry - General Appearance General appearance: well-developed, well-nourished, appears stated age EENT: ATNC, PERRL, mucous membranes moist Neck: no JVD Respiratory: Present: Clear to Ascultation Cardiology: regular, S1S2 Gastrointestinal: normoactive bowel sounds Integumentary: no rash Neurologic: no focal deficit, alert and oriented x3, strength 5/5, CN 3-12 intact Psychiatric: mood/affect appropriate, cooperative - Lab 08/21/21 09:00 08/21/21 05:15 Most recent lab results Calcium 9.1 mg/dL (8.4-10.2) 08/21/21 05:15 Phosphorus 2.90 mg/dL (2.5-4.5) 08/21/21 05:15 Magnesium 1.80 mg/dL (1.7-2.3) 08/21/21 05:15 Urine Creatinine 136.6 mg/dL (0.1-20.0) H 08/20/21 09:23 Urine Sodium 95 mmol/L 08/20/21 09:23 Urine Total Protein 15 mg/dL (5-11.8) H 08/20/21 09:23 Medications & Allergies - Medications Allergies/Adverse Reactions: Allergies No Known Allergies Allergy (Verified 08/17/21 22:29) Home Medications: Home Medications Medication Instructions Recorded Confirmed Last Taken Type Pantoprazole [Protonix] 40 mg PO QDAY #30 tablet 08/21/21 Unknown Rx levoFLOXacin [Levaquin TAB] 500 mg PO Q48H #2 tablet 08/21/21 Unknown Rx Active Medications: Generic Name Dose Route Start Last Admin Trade Name Freq PRN Reason Stop Dose Admin Acetaminophen 650 mg 08/18/21 05:25 Acetaminophen 325 Mg Tab PO Q4H PRN Pain MILD(1-3)/Fever >100.5/SIMMS Albuterol 2.5 mg 08/18/21 05:25 Albuterol 2.5 Mg/3 Ml Nebu IH Q3HRT PRN Shortness Of Breath Sodium Chloride 1,000 mls @ 50 mls/hr 08/22/21 09:00 Nacl 0.9% 1000 Ml IV DIRECT JUANI Levofloxacin 500 mg 08/21/21 08:00 08/21/21 10:57 Levofloxacin 500 Mg Tab PO 500 mg Q48H JUANI Administration Protocol Morphine Sulfate 2 mg 08/18/21 05:25 Morphine 2 Mg/1 Ml Inj IV Q4H PRN Pain, Moderate (4-6) Morphine Sulfate 4 mg 08/18/21 05:25 Morphine 4 Mg/1 Ml Inj IV Q4H PRN Pain , Severe (7-10) Multivitamins 1 each 08/22/21 10:00 Multivitamins ,Therapeutic Tab PO QDAY JUANI Ondansetron HCl 4 mg 08/18/21 05:25 Ondansetron 4 Mg/2 Ml Inj IV Q8H PRN Nausea And Vomiting Pantoprazole Sodium 40 mg 08/23/21 07:30 Pantoprazole 40 Mg Tab PO QDAC JUANI Sodium Chloride 10 ml 08/18/21 10:00 08/22/21 08:04 Sodium Chloride 0.9% 10 Ml Flush Syringe IV 10 ml BID JUANI Administration Sodium Chloride 10 ml 08/18/21 05:25 Sodium Chloride 0.9% 10 Ml Flush Syringe IV PRN PRN LINE FLUSH Tamsulosin HCl 0.8 mg 08/22/21 10:00 Tamsulosin 0.4 Mg Cap PO QDAY JUANI
[2021-08-22] MEDS: SODIUM CHLORIDE 0.9% 1000 ML 1,000 ML IV SCH (09:37)
[2021-08-22] MEDS: MULTIVITAMINS ,THERAPEUTIC TAB PO SCH (09:41)
[2021-08-22] MEDS: TAMSULOSIN 0.4 MG CAP PO SCH (09:41)
[2021-08-22 12:05] LABS: Hemoglobin 10.2 gm/dl (11.8-15.2); Mean Corpuscular HGB Conc 32 % (32-34); Mean Corpuscular Volume 71 fl (84-94); Platelet Count 176 K/mm3 (140-440); Red Blood Count 4.49 M/mm3 (3.65-5.03); Red Cell Distribution Width 14.9 % (13.2-15.2)
[2021-08-22 12:25] LABS: BUN/Creatinine Ratio 11; Blood Urea Nitrogen 11 mg/dL (9-20); Hemolysis Index 0
[2021-08-23] MEDS: SODIUM CHLORIDE 0.9% 1000 ML 1,000 ML IV SCH (03:44)
--- NOTE | 2021-08-23 09:10 | Progress Note ---
Assessment and Plan - Patient Problems (1) ROYA (acute kidney injury) Current Visit: Yes Status: Acute Plan to address problem: acute renal failure likely secondary to urinary retention with early hydroureter/hydronephrosis as evidenced by CT A/P. Renal function improving s/p romo placement, follow urology recommendations. No further renal recommenda tions at this point, will sign off (2) Urinary retention Current Visit: Yes Status: Acute Plan to address problem: s/p romo placement, follow urology recommendations (3) Metabolic acidosis Current Visit: Yes Status: Acute Plan to address problem: resolved (4) Hematemesis Current Visit: Yes Status: Acute Plan to address problem: follow GI recommendations Subjective Date of service: 08/23/21 Principal diagnosis: ROYA Interval history: pt awake, alert, s/p romo placement with increased UOP and improving renal fun ction Objective - Vital Signs Vital signs: Vital Signs - 12hr 08/22/21 08/22/21 08/22/21 22:23 23:00 23:09 Temperature 97.9 F Pulse Rate 103 H 108 H Respiratory 20 Rate Blood Pressure 116/75 O2 Sat by Pulse 93 96 Oximetry 08/23/21 04:30 Temperature 98.3 F Pulse Rate 95 H Respiratory 20 Rate Blood Pressure 102/61 O2 Sat by Pulse 94 Oximetry - General Appearance General appearance: well-developed, well-nourished, appears stated age EENT: ATNC, PERRL, mucous membranes moist Neck: no JVD Respiratory: Present: Clear to Ascultation Cardiology: regular, S1S2 Gastrointestinal: normoactive bowel sounds Integumentary: no rash Neurologic: no focal deficit, alert and oriented x3, strength 5/5, CN 3-12 intact - Lab 08/22/21 11:23 08/22/21 11:23 Most recent lab results Calcium 9.0 mg/dL (8.4-10.2) 08/22/21 11:23 Phosphorus 2.90 mg/dL (2.5-4.5) 08/21/21 05:15 Magnesium 1.80 mg/dL (1.7-2.3) 08/21/21 05:15 Urine Creatinine 136.6 mg/dL (0.1-20.0) H 08/20/21 09:23 Urine Sodium 95 mmol/L 08/20/21 09:23 Urine Total Protein 15 mg/dL (5-11.8) H 08/20/21 09:23 Medications & Allergies - Medications Allergies/Adverse Reactions: Allergies No Known Allergies Allergy (Verified 08/17/21 22:29) Home Medications: Home Medications Medication Instructions Recorded Confirmed Last Taken Type Pantoprazole [Protonix] 40 mg PO QDAY #30 tablet 08/21/21 Unknown Rx levoFLOXacin [Levaquin TAB] 500 mg PO Q48H #2 tablet 08/21/21 Unknown Rx Active Medications: Generic Name Dose Route Start Last Admin Trade Name Freq PRN Reason Stop Dose Admin Acetaminophen 650 mg 08/18/21 05:25 Acetaminophen 325 Mg Tab PO Q4H PRN Pain MILD(1-3)/Fever >100.5/SIMMS Albuterol 2.5 mg 08/18/21 05:25 Albuterol 2.5 Mg/3 Ml Nebu IH Q3HRT PRN Shortness Of Breath Sodium Chloride 1,000 mls @ 50 mls/hr 08/22/21 09:00 08/23/21 03:44 Nacl 0.9% 1000 Ml IV 50 mls/hr DIRECT JUANI Administration Levofloxacin 500 mg 08/21/21 08:00 08/21/21 10:57 Levofloxacin 500 Mg Tab PO 500 mg Q48H JUANI Administration Protocol Morphine Sulfate 2 mg 08/18/21 05:25 Morphine 2 Mg/1 Ml Inj IV Q4H PRN Pain, Moderate (4-6) Morphine Sulfate 4 mg 08/18/21 05:25 Morphine 4 Mg/1 Ml Inj IV Q4H PRN Pain , Severe (7-10) Multivitamins 1 each 08/22/21 10:00 08/22/21 09:41 Multivitamins ,Therapeutic Tab PO 1 each QDAY JUANI Administration Ondansetron HCl 4 mg 08/18/21 05:25 Ondansetron 4 Mg/2 Ml Inj IV Q8H PRN Nausea And Vomiting Pantoprazole Sodium 40 mg 08/23/21 07:30 Pantoprazole 40 Mg Tab PO QDAC JUANI Sodium Chloride 10 ml 08/18/21 10:00 08/22/21 21:06 Sodium Chloride 0.9% 10 Ml Flush Syringe IV 10 ml BID JUANI Administration Sodium Chloride 10 ml 08/18/21 05:25 Sodium Chloride 0.9% 10 Ml Flush Syringe IV PRN PRN LINE FLUSH Tamsulosin HCl 0.8 mg 08/22/21 10:00 08/22/21 09:41 Tamsulosin 0.4 Mg Cap PO 0.8 mg QDAY JUANI Administration
--- NOTE | 2021-08-23 09:43 | Progress Note ---
Assessment and Plan Assessment and plan: #Hematemesisruled out #Upper GI bleedruled out #Erosive gastritis Reported event prior to admission. No bleeding has been documented or seen during this hospitalization. Transitioning IV pantoprazole 40 mg twice daily to p.o 40 mg daily. Continue to trend H&H. Gastroenterology consulted; appreciate recs. Upper endoscopy performed (08/22/2021) revealing erosive gastritis. A biopsy was obtained. Transition to renal diet. #Hypernatremia Sodium 149 Starting D5W at 125 cc/hour. We will continue to monitor with repeat BMP. #Urinary obstructionresolved #BPH Visualized bladder distention on CT abdomen/pelvis noncontrast Urology consulted for Banegas placement; appreciate recs. Banegas catheter placed on 08/20/2021. Continue Flomax 0.8 mg daily. Upon discharge patient will leave with Banegas catheter. Patient will follow with urology in outpatient setting. #ROYA on CKD stage IIIresolved -Creatinine 3.0--> 4.4--> 6.8--> 9.8--> 2.2-->1.0 -ROYA secondary to urinary obstruction -Nephrology consulted; appreciate recs. -Renally dose medications and avoid nephrotoxic drugs. Renal diet. #Presumed community-acquired pneumonia Transitioned Rocephin 2 g daily and p.o. azithromycin 500 mg daily to Levaquin 500 mg every 48 hours for a total of 5-day course. #Microcytic anemia Hemoglobin 10.2 Ordering iron studies + ferritin. Transfuse if hemoglobin <7 or patient becomes symptomatic. #History of CVA with focal deficits Continue goal-directed medical therapy #Advanced care planning -Disease education conducted, care plan discussed, diagnoses discussed, prognosis discussed, and patient acknowledges understanding with care plan -Time: +30 min #Discharge planning - Patient is pending physical therapy evaluation and recommendations for patient's debility. - Case management has been made aware. - Discharge is tentatively 24-48 hours Disposition Plan: Continue medical management Total Time Spent with Patient (Minutes): 30 min History Interval history: No acute events overnight. Hospitalist Physical - Constitutional Vitals: Temp Pulse Resp BP Pulse Ox 98.3 F 95 H 20 102/61 94 08/23/21 04:30 08/23/21 04:30 08/23/21 04:30 08/23/21 04:30 08/23/21 04:30 General appearance: Present: no acute distress, well-nourished - EENT Eyes: Present: PERRL, EOM intact ENT: hearing intact, clear oral mucosa, dentition normal - Neck Neck: Present: supple, normal ROM - Respiratory Respiratory effort: normal Respiratory: bilateral: CTA - Cardiovascular Rhythm: regular Heart Sounds: Present: S1 & S2 - Extremities Extremities: no ischemia, pulses intact, pulses symmetrical, No edema, normal temperature, normal color Peripheral Pulses: within normal limits - Abdominal General gastrointestinal: soft, non-tender, non-distended, normal bowel sounds - Integumentary Integumentary: Present: clear, warm, dry - Psychiatric Psychiatric: cooperative - Neurologic Neurologic: CNII-XII intact - Allied Health Allied health notes reviewed: nursing Results - Labs CBC & Chem 7: 08/22/21 11:23 08/22/21 11:23 Labs: Laboratory Last Values WBC 7.4 K/mm3 (4.5-11.0) 08/22/21 11:23 RBC 4.49 M/mm3 (3.65-5.03) 08/22/21 11:23 Hgb 10.2 gm/dl (11.8-15.2) L 08/22/21 11:23 Hct 32.0 % (35.5-45.6) L 08/22/21 11:23 MCV 71 fl (84-94) L 08/22/21 11:23 MCH 23 pg (28-32) L 08/22/21 11:23 MCHC 32 % (32-34) 08/22/21 11:23 RDW 14.9 % (13.2-15.2) 08/22/21 11:23 Plt Count 176 K/mm3 (140-440) 08/22/21 11:23 Lymph % (Auto) 13.9 % (13.4-35.0) 08/19/21 04:40 [place] % (Auto) 9.3 % (0.0-7.3) H 08/19/21 04:40 Eos % (Auto) 0.6 % (0.0-4.3) 08/19/21 04:40 Baso % (Auto) 0.1 % (0.0-1.8) 08/19/21 04:40 Lymph # (Auto) 1.1 K/mm3 (1.2-5.4) L 08/19/21 04:40 [place] # (Auto) 0.7 K/mm3 (0.0-0.8) 08/19/21 04:40 Eos # (Auto) 0.0 K/mm3 (0.0-0.4) 08/19/21 04:40 Baso # (Auto) 0.0 K/mm3 (0.0-0.1) 08/19/21 04:40 Seg Neutrophils % 76.1 % (40.0-70.0) H 08/19/21 04:40 Seg Neutrophils # 6.1 K/mm3 (1.8-7.7) 08/19/21 04:40 PT 13.9 Sec. (12.2-14.9) 08/17/21 22:40 INR 0.97 (0.87-1.13) 08/17/21 22:40 Sodium 149 mmol/L (137-145) H 08/22/21 11:23 Potassium 3.9 mmol/L (3.6-5.0) 08/22/21 11:23 Chloride 113.0 mmol/L (98-107) H 08/22/21 11:23 Carbon Dioxide 25 mmol/L (22-30) 08/22/21 11:23 Anion Gap 15 mmol/L 08/22/21 11:23 BUN 11 mg/dL (9-20) 08/22/21 11:23 Creatinine 1.0 mg/dL (0.8-1.3) D 08/22/21 11:23 Estimated GFR > 60 ml/min 08/22/21 11:23 BUN/Creatinine Ratio 11 % 08/22/21 11:23 Glucose 89 mg/dL (75-100) 08/22/21 11:23 Calcium 9.0 mg/dL (8.4-10.2) 08/22/21 11:23 Phosphorus 2.90 mg/dL (2.5-4.5) 08/21/21 05:15 Magnesium 1.80 mg/dL (1.7-2.3) 08/21/21 05:15 Total Bilirubin 0.60 mg/dL (0.1-1.2) 08/17/21 22:40 AST 21 units/L (5-40) 08/17/21 22:40 ALT 13 units/L (7-56) 08/17/21 22:40 Alkaline Phosphatase 86 units/L (35-129) 08/17/21 22:40 Total Protein 7.2 g/dL (6.3-8.2) 08/17/21 22:40 Albumin 4.0 g/dL (3.9-5) 08/17/21 22:40 Albumin/Globulin Ratio 1.3 % 08/17/21 22:40 Lipase 14 units/L (13-60) 08/17/21 22:40 Urine Color Yellow (Yellow) 08/20/21 09:23 Urine Turbidity Clear (Clear) 08/20/21 09:23 Urine pH 5.0 (5.0-7.0) 08/20/21 09:23 Ur Specific [place] 1.013 (1.003-1.030) 08/20/21 09:23 Urine Protein <15 mg/dl mg/dL (Negative) 08/20/21 09:23 Urine Glucose (UA) Neg mg/dL (Negative) 08/20/21 09:23 Urine Ketones Neg mg/dL (Negative) 08/20/21 09:23 Urine Blood Lg (Negative) 08/20/21 09:23 Urine Nitrite Neg (Negative) 08/20/21 09:23 Urine Bilirubin Neg (Negative) 08/20/21 09:23 Urine Urobilinogen < 2.0 mg/dL (<2.0) 08/20/21 09:23 Ur Leukocyte Esterase Neg (Negative) 08/20/21 09:23 Urine WBC (Auto) 5.0 /HPF (0.0-6.0) 08/20/21 09:23 Urine RBC (Auto) > 182.0 /HPF (0.0-6.0) 08/20/21 09:23 U Epithel Cells (Auto) 2.0 /HPF (0-13.0) 08/20/21 09:23 Urine Mucus Few /HPF 08/20/21 09:23 Urine Creatinine 136.6 mg/dL (0.1-20.0) H 08/20/21 09:23 Urine Sodium 95 mmol/L 08/20/21 09:23 Urine Total Protein 15 mg/dL (5-11.8) H 08/20/21 09:23 Coronavirus (PCR) Negative (Negative) 08/21/21 11:03 Blood Type B POSITIVE 08/17/21 22:45 Antibody Screen Negative 08/17/21 22:45 Microbiology: Microbiology 08/18/21 01:04 Peripheral/Venous Blood Culture - Final NO GROWTH AFTER 5 DAYS 08/18/21 01:36 Peripheral/Venous Blood Culture - Final NO GROWTH AFTER 5 DAYS Banegas/IV: Voiding Method Indwelling Catheter Active Medications - Current Medications Current Medications: Generic Name Dose Route Start Last Admin Trade Name Freq PRN Reason Stop Dose Admin Acetaminophen 650 mg 08/18/21 05:25 Acetaminophen 325 Mg Tab PO Q4H PRN Pain MILD(1-3)/Fever >100.5/SIMMS Albuterol 2.5 mg 08/18/21 05:25 Albuterol 2.5 Mg/3 Ml Nebu IH Q3HRT PRN Shortness Of Breath Sodium Chloride 1,000 mls @ 50 mls/hr 08/22/21 09:00 08/23/21 03:44 Nacl 0.9% 1000 Ml IV 50 mls/hr DIRECT JUANI Administration Levofloxacin 500 mg 08/21/21 08:00 08/21/21 10:57 Levofloxacin 500 Mg Tab PO 500 mg Q48H JUANI Administration Protocol Morphine Sulfate 2 mg 08/18/21 05:25 Morphine 2 Mg/1 Ml Inj IV Q4H PRN Pain, Moderate (4-6) Morphine Sulfate 4 mg 08/18/21 05:25 Morphine 4 Mg/1 Ml Inj IV Q4H PRN Pain , Severe (7-10) Multivitamins 1 each 08/22/21 10:00 08/22/21 09:41 Multivitamins ,Therapeutic Tab PO 1 each QDAY JUANI Administration Ondansetron HCl 4 mg 08/18/21 05:25 Ondansetron 4 Mg/2 Ml Inj IV Q8H PRN Nausea And Vomiting Pantoprazole Sodium 40 mg 08/23/21 07:30 Pantoprazole 40 Mg Tab PO QDAC JUANI Sodium Chloride 10 ml 08/18/21 10:00 08/22/21 21:06 Sodium Chloride 0.9% 10 Ml Flush Syringe IV 10 ml BID JUANI Administration Sodium Chloride 10 ml 08/18/21 05:25 Sodium Chloride 0.9% 10 Ml Flush Syringe IV PRN PRN LINE FLUSH Tamsulosin HCl 0.8 mg 08/22/21 10:00 08/22/21 09:41 Tamsulosin 0.4 Mg Cap PO 0.8 mg QDAY JUANI Administration Nutrition/Malnutrition Assess - Dietary Evaluation Nutrition/Malnutrition Findings: Nutrition Notes Start: 08/21/21 16:44 Freq: Status: Active Protocol: Document 08/21/21 16:44 BONNIE (Rec: 08/21/21 17:11 BONNEI [id number]) Nutrition Notes Need for 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 Current Diet NPO (from 08/22 00:01). Labs/Tests 08/21: Na 147, Cl 113.3, BUN 29, Crea 2.2. Pertinent Medications 08/21: Nutritionally unremarkable. 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 Pt will be on NPO after midnight. Pt's PO intake of meals has been Fair (<75%), according to ADL notes. I will prescribe dietary supplements to compensate for poor or insufficient PO intake of meals to be ordered when pertinent. Pt is on Room Air, O2 saturation @ 98%, according to Physical Assessment History notes. Pt has missing teeth, according to Physical Assessment History notes. Procedure planned for 08/22: EGD, Pt on NPO after midnight, according to Progress notes. Pt shows no signs of concern for risk of malnutrition at the time, according to Physical Assessment History notes. Percent of energy/protein needs met: Pt will be on NPO after midnight. When pertinent resume Prescribed Clear Liquids Diet provides for energy/protein needs (590 Kcal/16 g) during LOS; additionally, Dietary Supplements will compensate for possible poor or insufficient PO intake of meals with 720 Kcal and 24 g of protein. Burn Absent Trauma Absent GI Symptoms Vomiting,Other Food Allergy No Skin Integrity/Comment Assessment WNL. 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 As Evidenced by Signs and Symptoms GI Bleed/Hematemesis/Melena. Is patient on ventilator? No Is Patient Ambulatory and/or Out of Bed Yes REE-([facility]-ambulatory/OOB) [ [id number] [id number]] Calculation Used for Recommendations [facility] Additional Notes Protein: 1.25-1.5 g/Kg ABW; 101-122 g/day. Fluids: 1 ml/Kcal, or as per MD. Nutrition Intervention Change Diet Order: When pertinent resume Clear Liquid Diet. Add Supplement/Snack (indicate name/kcal When Pertinent, start 8 fl oz /protein ) Ensure Clear; TID. Provides kCal: 720 Provides Protein (gm) 24 Goal #1 Compensate, through dietary supplementation, for possible poor or insufficient PO intake of meals during LOS. Goal #2 Adjust the dietary intervention to better serve Pt's needs and clinical conditions during LOS. Follow-Up By: 08/28/21 Additional Comments When pertinent, continue monitoring food tolerance, %PO intake of meals, and BM.
[2021-08-23] MEDS: TAMSULOSIN 0.4 MG CAP PO SCH (10:27)
[2021-08-23] MEDS: MULTIVITAMINS ,THERAPEUTIC TAB PO SCH (10:27)
[2021-08-23] MEDS: PANTOPRAZOLE 40 MG TAB PO SCH (10:27)
[2021-08-23] MEDS: levoFLOXacin 500 MG TAB PO SCH (10:34)
[2021-08-23] MEDS: DEXTROSE 5% IN WATER 1,000 ML IV SCH ×2 (14:35→21:47)
[2021-08-24] MEDS: DEXTROSE 5% IN WATER 1,000 ML IV SCH (06:40)
[2021-08-24 06:43] LABS: Basophils % (Auto) 0.4 % (0.0-1.8); Eosinophils # (Auto) 0.2 K/mm3 (0.0-0.4); Eosinophils % (Auto) 2.9 % (0.0-4.3); Hematocrit 33.6 % (35.5-45.6); Hemoglobin 10.6 gm/dl (11.8-15.2); Lymphocytes % (Auto) 27.8 % (13.4-35.0); Mean Corpuscular HGB Conc 32 % (32-34); Mean Corpuscular Volume 71 fl (84-94); Monocytes # (Auto) 0.9 K/mm3 (0.0-0.8); Monocytes % (Auto) 11.7 % (0.0-7.3); Platelet Count 220 K/mm3 (140-440); Red Cell Distribution Width 15.4 % (13.2-15.2)
[2021-08-24 06:58] LABS: BUN/Creatinine Ratio 9; Blood Urea Nitrogen 9 mg/dL (9-20); Hemolysis Index 0
[2021-08-24 07:02] LABS: Iron 50 ug/dL (49-181); Total Iron Binding Capacity 184 mcg/dL (250-450)
[2021-08-24] MEDS: MULTIVITAMINS ,THERAPEUTIC TAB PO SCH (11:32)
[2021-08-24] MEDS: TAMSULOSIN 0.4 MG CAP PO SCH (11:32)
[2021-08-24] MEDS: PANTOPRAZOLE 40 MG TAB PO SCH (11:36)
[2021-08-24 13:56] LABS: BUN/Creatinine Ratio 10; Blood Urea Nitrogen 10 mg/dL (9-20); Hemolysis Index 2
--- NOTE | 2021-08-25 10:20 | Discharge Summary ---
Providers - Providers Date of Admission: 08/18/21 05:25 Date of discharge: 08/25/21 Attending physician: MICK SILVERMAN MD 08/18/21 05:25 Consult to Physician [CONS] Routine Comment: Consulting Provider: TJ KWAN Physician Instructions: Reason For Exam: gib Consult to Physician [CONS] Routine Comment: Consulting Provider: NICOLE PEGUERO Physician Instructions: Reason For Exam: roya 08/19/21 14:56 Consult to Physician [CONS] Routine Comment: Consulting Provider: ELIZABETH WHITMAN Physician Instructions: Reason For Exam: Urinary outlet obstruction 08/22/21 08:32 Physical Therapy Evaluation and Treat [CONS] Routine Comment: Reason For Exam: Debility Primary care physician: [employer] Hospitalization Condition: Stable Hospital course: Patient is a 61-year-old male with past medical history of acute ischemic CVA with left-sided weakness and hypertension who presented to the ED with reported episode of hematemesis while at home. The patient himself is unable to give a detailed history given deficits from his previous CVA. The patient is currently on aspirin and Plavix for antiplatelet therapy. Patient denied any blood in his stool or episodes of melena or hematochezia. In the ED the patient was found to be hemodynamically stable with a hemoglobin of 14.3. The patient's labs are remarkable for a creatinine of 3.0. The patient underwent CT abdomen and pelvis without contrast revealing right-sided pneumonia, prominent bladder distention with resultant distention of the renal collecting systems and ureters, and gastric distention with associated fluid-filled hiatal hernia. Patient was started on Rocephin and azithromycin for community-acquired pneumonia coverage. Nephrology was consulted for further management. It was deemed that the patient had urinary obstruction likely leading to his worsening renal function. Gastroenterology was consulted for management of reported hematemesis, the patient was placed on GI bleed protocol. EGD was performed which showed erosive gastritis which was biopsied and a medium hiatal hernia. Patient has since been weaned off of IV Protonix and will be discharged home with p.o. Protonix 40 mg daily x4 weeks. Urology was consulted for Banegas placement in the setting of likely BPH. As a result the patient's creatinine (which had risen to 9.8) has since improved to 1.0. Patient will be discharging home with a Banegas catheter. Patient is medically clear for discharge. Disposition: 01 HOME / SELF CARE / HOMELESS Final Discharge Diagnosis (Prints w/discharge instructions): Urinary obstruction, BPH, ROYA on CKD stage 3, community-acquired pneumonia, history of CVA with focal deficits, hypernatremia Time spent for discharge: 20 MINUTES Core Measure Documentation - Palliative Care Palliative Care/ Comfort Measures: Not Applicable - Core Measures Any of the following diagnoses?: history only Exam - Physical Exam Narrative exam: GENERAL: Well-developed well-nourished. In no acute distress. HEENT: Normocephalic. Atraumatic. NECK: Supple. CHEST/LUNGS: CTAB on room air HEART/CARDIOVASCULAR: RRR. No murmur, rubs or gallops appreciated. ABDOMEN: +BS. NT/ND. SKIN: No rashes noted. NEURO: No focal motor deficit. Follows all commands. MUSCULOSKELETAL: No joint effusion EXTREMITIES: No cyanosis, clubbing or edema. PSYCH: Cooperative. - Constitutional Vitals: Temp Pulse Resp BP Pulse Ox 97.5 F L 60 18 114/61 95 08/24/21 09:52 08/25/21 03:35 08/24/21 08:15 08/25/21 03:35 08/25/21 03:35 Plan Care Plan Goals: Patient is medically clear for discharge to [facility]. Assessment: Patient is a 61-year-old male with past medical history of acute ischemic CVA with left-sided weakness and hypertension who presented to the ED with reported episode of hematemesis while at home. The patient himself is unable to give a detailed history given deficits from his previous CVA. The patient is currently on aspirin and Plavix for antiplatelet therapy. Patient denied any blood in his stool or episodes of melena or hematochezia. In the ED the patient was found to be hemodynamically stable with a hemoglobin of 14.3. The patient's la bs are remarkable for a creatinine of 3.0. The patient underwent CT abdomen and pelvis without contrast revealing right-sided pneumonia, prominent bladder distention with resultant distention of the renal collecting systems and ureters, and gastric distention with associated fluid-filled hiatal hernia. Patient was started on Rocephin and azithromycin for community-acquired pneumonia coverage. Nephrology was consulted for further management. It was deemed that the patient had urinary obstruction likely leading to his worsening renal function. Gastroenterology was consulted for management of reported hematemesis, the patient was placed on GI bleed protocol. Patient was monitored and found to have no decrease in his hemoglobin. Patient has since been weaned off of IV Protonix and will be discharged home with p.o. Protonix 40 mg daily x4 weeks. Urology was consulted for Banegas placement in the setting of likely BPH. As a result the patient's creatinine (which had risen to 9.8) has since improved to 2.2. Patient will be discharging home with a Banegas catheter. Patient is medically clear for discharge. Follow up with: ELIZABETH WHITMAN MD [Staff Physician] - 6 Weeks PRIMARY CARE, [Primary Care Provider] - 3-5 Days Prescriptions: levoFLOXacin [Levaquin TAB] 500 mg PO Q48H #2 tablet Pantoprazole [Protonix] 40 mg PO QDAY #30 tablet
[2021-08-25 12:39] VITALS: BP 112/70
[2021-08-25] MEDS: TAMSULOSIN 0.4 MG CAP PO SCH (13:52)
[2021-08-25] MEDS: MULTIVITAMINS ,THERAPEUTIC TAB PO SCH (13:53)
[2021-08-25] MEDS: PANTOPRAZOLE 40 MG TAB PO SCH (13:53)
== END 2021-08-25 18:00 | DRG 194 ==
LOC: ED 20:03 → 4A 08-18 05:25
PROVIDERS: ADMIT Hospitalist; ATTEND Student in an Organized Health Care Education/Training Program
PROC: 0DB68ZX Excision of Stomach, Via Natural or Artificial Opening Endoscopic, Diagnostic (ICD-10-PCS; principal; 2021-08-22)
DX: J18.9 Pneumonia, unspecified organism (principal); E87.0 Hyperosmolality and hypernatremia; I69.954 Hemiplegia and hemiparesis following unspecified cerebrovascular disease affecting left non-dominant side; N17.9 Acute kidney failure, unspecified; E87.2 Acidosis; N13.8 Other obstructive and reflux uropathy; D62 Acute posthemorrhagic anemia; I12.9 Hypertensive chronic kidney disease with stage 1 through stage 4 chronic kidney disease, or unspecified chronic kidney disease; N18.30 Chronic kidney disease, stage 3 unspecified; N40.1 Benign prostatic hyperplasia with lower urinary tract symptoms; R33.8 Other retention of urine; K29.70 Gastritis, unspecified, without bleeding; K44.9 Diaphragmatic hernia without obstruction or gangrene; Z82.49 Family history of ischemic heart disease and other diseases of the circulatory system
CPT/HCPCS: 36415; 71045; 74018; 74176; 80048; 80053; 81001; 82570; 82728; 82962; 83550; 83690; 83735; 84100; 84156; 84300; 85014; 85018; 85025; 85027; 85610; 86850; 86900; 86901; 87040; 88305; 88342; 93005; 94640; G0378; J7070; C9113; J0696; J2405; J2704; J7030; J7120; U0003